=== PATIENT | female | born 1985 | race Caucasian/White ===

== ENCOUNTER 2016-11-10 10:21 | Emergency (ER) | payer OTHER ==
[~2016-11-10] VITALS: Wt 89.0 kg
[~2016-11-10 10:21] MED LIST: AMOX1TAB10 PO; BEN50 PO; CALC1TAB79 PO; CIPR500T4 PO; HC1C30 TOP; HYDR-3498 PO; HYDR-906 PO; HYDR200T5 PO; NAPR-260 PO; ONDA4TAB11 PO; PRED20TA PO; RANI150T9 PO; TRAM50TA2 PO
[2016-11-10] MEDS ORDERED: IBUPROFEN 800 MG TAB PO ONE (11:30)
[2016-11-10] MEDS ORDERED: IBUP-1542 PO (12:14)
--- NOTE | 2016-11-10 12:15 | ERD ---
ER Documentation Chief Complaint Date/Time DATE: 11/10/16 TIME: 12:15 Chief Complaint R ARM NUMBNESS AND FEELING TIRED AND LIGHTHEADED FOR 3 DAYS. HX OF LUPUS HPI Patient is a 31-year-old female with lupus who presents saying that she is "feeling weird". She's been feeling this for a few days. She feels like " needles or poking me under both feet". She said that last night she started with right arm tingling and heaviness. She had subjective fever but did not take her temperature. She used tramadol last night. She does have a primary doctor. Upon review of old medical records the patient has multiple visits to the ER for various complaints. ROS All systems reviewed and are negative except as per history of present illness. Medications Home Meds Active Scripts Ibuprofen* (Motrin*) 600 Mg Tab, 600 MG PO Q6H Y for PAIN AND OR ELEVATED TEMP, #30 TAB Prov:HOSEA DUENAS MD 11/10/16 Ondansetron (Zofran Odt) 4 Mg Tab.rapdis, 4 MG PO Q6, #10 Prov:MARIA TERESA TINAJERO DO 08/10/16 Hydrocodone/Acetaminophen ([place] 5-325 Tablet) 1 Each Tablet, 1 EACH PO Q6, #20 TAB Prov:GREENMARIA TERESA DO 08/10/16 Hydrocodone/Acetaminophen ([place] 5-325 Tablet) 1 Each Tablet, 1 EACH PO Q6, #14 TAB Prov:MARIA TERESA TINAJERO DO 07/24/16 Tramadol HCl (Tramadol HCl) 50 Mg Tablet, 50 MG PO Q4 Y for PAIN, #20 TAB Prov:HUMBERTO ROSA PA-C 06/07/16 Hydrocodone Bit-Acetaminophen* ([place]*) 5-325 Mg Tab, 1 TAB PO Q6 Y for PAIN, # 20 TAB Prov:EMMA GIL NP 12/03/15 Reported Medications Calcium Carbonate/Vitamin D3 ([place] 500+D Tablet) 1 Each Tablet, 1 TAB PO, TAB 07/24/16 Hydroxychloroquine Sulfate* (Plaquenil*) 200 Mg Tab, 200 MG PO DAILY, TAB 07/24/16 Discontinued Reported Medications Naproxen* (Naprosyn*) 500 Mg Tablet, 500 MG PO BID, TAB 07/24/16 Discontinued Scripts Naproxen* (Naprosyn*) 500 Mg Tablet, 500 MG PO BID Y for PAIN AND/OR INFLAMMATION, #30 TAB Prov:MARIA TERESA TINAJERO DO 08/10/16 Ciprofloxacin Hcl* (Ciprofloxacin Hcl*) 500 Mg Tablet, 500 MG PO BID for 7 Days , TAB Prov:MARIA TERESA TINAJERO DO 08/10/16 Ranitidine Hcl* (Zantac*) 150 Mg Tablet, 150 MG PO BID, #60 TAB Prov:CHRISTIANO TINAJEROMINERVA RAYA 07/24/16 Prednisone* (Prednisone*) 20 Mg Tab, 40 MG PO DAILY for 4 Days, TAB Prov:HUMBERTO ROSA PA-C 06/07/16 Prednisone* (Prednisone*) 20 Mg Tab, 40 MG PO DAILY for 4 Days, TAB Prov:JILLIAN CARTWRIGHT PA-C 05/05/16 Diphenhydramine Hcl* (Benadryl*) 50 Mg Cap, 50 MG PO Q6 Y for rash, #30 CAP Prov:JILLIAN CARTWRIGHT PA-C 05/05/16 Hydrocortisone* Topical (Hydrocortisone* Topical) 1%-28.35 Gm Cream..g., 1 APPLIC TOP Q6 Y for ITCHING, #1 TUB Prov:JILLIAN CARTWRIGHT PA-C 05/05/16 Amox Tr/Potassium Clavulanate (Amox Tr-K Clv 875-125 Mg Tab) 1 Tab Tablet, 1 TAB PO BID for 7 Days, #20 TAB Prov:RICKEY LIN MD 02/29/16 Allergies Allergies: Coded Allergies: No Known Drug Allergies (Verified Allergy, Mild, 11/10/16) PMhx/Soc History of Surgery: Yes (X3 C/S) Anesthesia Reaction: No Hx Neurological Disorder: No Hx Respiratory Disorders: No Hx Cardiac Disorders: Yes (SC) Hx Psychiatric Problems: No Hx Miscellaneous Medical Probl: Yes (LUPUS) Hx Alcohol Use: No Hx Substance Use: No Hx Tobacco Use: No Smoking Status: Never smoker FmHx Family History: No coronary disease, No diabetes Physical Exam Vitals Vital Signs Date Time Temp Pulse Resp B/P Pulse Ox O2 Delivery O2 Flow Rate FiO2 11/10/16 12:34 98.8 72 15 104/69 100 Room Air 11/10/16 10:34 98.8 83 22 114/67 100 Physical Exam Const: Acute distress Head: Atraumatic Eyes: Normal Conjunctiva ENT: Normal External Ears, Nose and Mouth. Neck: Full range of motion..~ No meningismus. Resp: Clear to auscultation bilaterally Cardio: Regular rate and rhythm, no murmurs Abd: Soft, non tender, non distended. Normal bowel sounds Skin: No petechiae or rashes Back: No midline or flank tenderness Ext: No cyanosis, or edema Neur: Awake and alert, cranial nerves II through XII are intact, strength is 5 out of 5 in all 4 extremities Psych: Normal Mood and Affect Results 24 hrs Laboratory Tests Test 11/10/16 11:12 Bedside Glucose 78mg/dL Current Medications Medications (Trade) Dose Ordered Sig/Tony Route PRN Reason Start Time Stop Time Status Last Admin Dose Admin Ibuprofen (Motrin) 800 mg ONCE ONCE PO 11/10/16 11:30 11/10/16 11:31 DC 11/10/16 11:48 Procedures/MDM EKG read by me: Rate/Rhythm: Regular rate and rhythm at a rate of 68 Intervals: Normal Impression: No evidence of ischemia or arrhythmia Accu-Chek is normal. Urine test is negative. Patient is a 31-year-old female with lupus who presents with paresthesias. Her symptoms are not consistent with acute coronary syndrome or stroke. She has a normal neurologic exam. EKG is normal. Accu-Chek is normal and I doubt hypo-or hyperglycemia. Her test is negative and I doubt or ectopic . I believe outpatient management is appropriate. The patient will need to follow-up closely with her primary doctor within 24-48 hours and to return sooner for any worsening symptoms. She understands the plan and is okay for discharge at this time. Departure Diagnosis: Primary Impression: Paresthesia Condition: Fair Patient Instructions: Paraesthesias Additional Instructions: Call your primary care doctor TOMORROW for an appointment during the next 1-2 days.See the doctor sooner or return here if your condition worsens before your appointment time. HOSEA DUENAS MD Nov 10, 2016 12:15
[2016-11-10 12:34] VITALS: BP 104/69; PULSE 72; RESP 15; TEMP 98.8
== END 2016-11-10 12:36 | disposition home or self-care (01) ==
LOC: E/R 10:21
DX: R20.2 Paresthesia of skin (principal); R42 Dizziness and giddiness
CPT/HCPCS: 82962; Z7610; 93005

== ENCOUNTER 2016-11-16 16:02 | Emergency (ER) | END 2016-11-16 20:47 | disposition home or self-care (01) | DX: M32.9 Systemic lupus erythematosus, unspecified (principal); R07.9 Chest pain, unspecified | CPT/HCPCS: 71010; 80053; 81001; 85025; 93005; 96374; J1885; Z7502 ==

== ENCOUNTER 2016-12-17 11:56 | Emergency (ER) | payer OTHER ==
[~2016-12-17] VITALS: Ht 157.5 cm; Wt 94.0 kg
[~2016-12-17 11:56] MED LIST changes: -AMOX1TAB10 PO; -BEN50 PO; -CIPR500T4 PO; -HC1C30 TOP; +IBUP-1542 PO; -NAPR-260 PO; -PRED20TA PO; -RANI150T9 PO
[2016-12-17 12:08] VITALS: Ht 157.5 cm; Wt 94.0 kg
--- NOTE | 2016-12-17 12:38 | ERD ---
ER Documentation Chief Complaint Date/Time DATE: 12/17/16 Chief Complaint Left cheek swelling s/p "pooped big pimple" yesterday HPI The patient is a 31-year-old female who presents to the Emergency Department with complaint of left cheek pain and swelling. The patient reports that over the past few days, she has developed a large cystic pimple to the left cheek. Yesterday, she tried to pop the pimple, which only resulted in further pain and swelling. Upon waking up this morning, she noted continued throbbing pain to the area, with warmth, tenderness, swelling and now, overlying erythema. She notes that the pain is worse with palpation. The patient rates her current pain as 7/10. She denies any spontaneous drainage. Denies difficulty opening/ closing her mouth. Denies fevers or chills. Denies nausea or vomiting. ROS All systems reviewed and are negative except as per history of present illness. Medications Home Meds Active Scripts Ibuprofen* (Motrin*) 600 Mg Tab, 600 MG PO Q6, #30 TAB Prov:AMY BROWN PA-C 12/17/16 Cephalexin* (Keflex*) 500 Mg Capsule, 500 MG PO QID for 7 Days, CAP Prov:AMY BROWN PA-C 12/17/16 Sulfamethoxazole-Trimethoprim* (Bactrim* DS) 800-160 Mg Tab, 1 TAB PO BID for 10 Days, TAB Prov:AMY BROWN PA-C 12/17/16 Hydrocodone/Acetaminophen ([place] 5-325 Tablet) 1 Each Tablet, 1 TAB PO Q6H Y for PAIN, #20 TAB Prov:SHANON BUCHANAN 11/16/16 Ibuprofen* (Motrin*) 600 Mg Tab, 600 MG PO Q6H Y for PAIN AND OR ELEVATED TEMP, #30 TAB Prov:HOSEA DUENAS MD 11/10/16 Ondansetron (Zofran Odt) 4 Mg Tab.rapdis, 4 MG PO Q6, #10 Prov:MARIA TERESA TINAJERO DO 08/10/16 Hydrocodone/Acetaminophen ([place] 5-325 Tablet) 1 Each Tablet, 1 EACH PO Q6, #20 TAB Prov:GREENRONNIEMARIA TERESA DO 08/10/16 Hydrocodone/Acetaminophen ([place] 5-325 Tablet) 1 Each Tablet, 1 EACH PO Q6, #14 TAB Prov:MARIA TERESA TINAJERO DO 07/24/16 Tramadol HCl (Tramadol HCl) 50 Mg Tablet, 50 MG PO Q4 Y for PAIN, #20 TAB Prov:HUMBERTO ROSA PA-C 06/07/16 Hydrocodone Bit-Acetaminophen* ([place]*) 5-325 Mg Tab, 1 TAB PO Q6 Y for PAIN, # 20 TAB Prov:EMMA GIL NP 12/03/15 Reported Medications Calcium Carbonate/Vitamin D3 ([place] 500+D Tablet) 1 Each Tablet, 1 TAB PO, TAB 07/24/16 Hydroxychloroquine Sulfate* (Plaquenil*) 200 Mg Tab, 200 MG PO DAILY, TAB 07/24/16 Allergies Allergies: Coded Allergies: No Known Drug Allergies (Verified Allergy, Mild, 12/17/16) PMhx/Soc History of Surgery: Yes (X3 C/S) Anesthesia Reaction: No Hx Neurological Disorder: No Hx Respiratory Disorders: No Hx Cardiac Disorders: Yes (acs) Hx Psychiatric Problems: No Hx Miscellaneous Medical Probl: Yes (LUPUS) Hx Alcohol Use: No Hx Substance Use: No Hx Tobacco Use: No Smoking Status: Never smoker Physical Exam Vitals Vital Signs Date Time Temp Pulse Resp B/P Pulse Ox O2 Delivery O2 Flow Rate FiO2 12/17/16 12:08 98.4 82 16 110/69 99 Physical Exam Const: Well-developed, well-nourished, in no acute distress. Head: Normocephalic. Atraumatic Eyes: Normal Conjunctiva ENT: Normal External Ears, Nose and Mouth. Clear oropharynx. No trismus. No stridor. No brawny induration. No submandibular swelling. No lip or tongue swelling. Neck: Supple. Full range of motion. No lymphadenopathy. Resp: Clear to auscultation bilaterally. Speaking in full sentences. No wheezing. Cardio: Regular rate and rhythm, no murmurs Skin: Red, indurated, cystic structure/abscess to left cheek, with no fluctuance appreciated. Few overlying abrasions, but no bleeding or spontaneous drainage. No crepitus. The area is warm, tender, erythematous with minimal swelling noted. Ext: No clubbing, cyanosis, or edema. Moving all extremities. Neur: Awake and alert Psych: Normal Mood and Affect Procedures/MDM This is a 31-year-old female presenting to the emergency department with complaint of warmth, erythema and swelling to the left cheek s/p attempt at popping a large pimple yesterday. The patient had a notable indurated erythematous region, that is warm to touch and tender to palpation on physical examination. However, the patient's oropharynx and airway was patent, and exhibited no breathing difficulties, wheezing, tongue swelling or lip swelling. Her vital signs were stable, and she was afebrile, with no recent history of fevers or chills. The differential diagnosis includes, but is not limited to, allergic reaction, insect bite, fungal infection, cellulitis, MRSA, impetigo, shingles, herpes simplex virus, burn, abscess, dermatitis, viral syndrome, candidiasis, medication reaction, Torres Yeison syndrome, epidermolysis bullosa, toxic epidermal necrolysis, meningococcemia. After rest, the patient has no new complaints, and the patient remains stable with appropriate vital signs and no signs of respiratory distress. Upon my review and interpretation of the patient's presentation and overall ER course, I believe the patient's symptoms are most consistent with abscess/ infected cyst of left cheek. Given induration and current presentation, in addition to location on patient's face, will attempt to first treat with antibiotics rather than I&D. The patient is in stable condition and therefore can be discharged home with prescriptions for Bactrim and Keflex, and strict return precautions for signs of deteriorating or worsening condition. Warm compresses recommended. The patient is strongly advised to follow up with her primary care provider within 2-3 days for re-evaluation and further management, or return to the ER sooner for worsening symptoms. Additionally, she is advised to return sooner if she notices the erythema or swelling spreading beyond the current borders. I shared my medical decision making and plan with the patient at length and in great detail, and she verbally understands and agrees with the plan for further observation and care as an outpatient. At the time of discharge all questions were answered. Departure Diagnosis: Primary Impression: Abscess of left internal cheek Condition: Stable Patient Instructions: Abscess, Antiobiotic Treatment Only Additional Instructions: Follow up with your primary medical provider in 2-3 days for reevaluation and further management. Return to the ED sooner for any new or worsening symptoms, including development of fevers (> 100.4), vomiting, worsening swelling, development of worsening redness, or any other concerning symptoms. AMY BROWN PA-C Dec 17, 2016 12:38
[2016-12-17] MEDS ORDERED: BACTDS PO (12:39)
[2016-12-17] MEDS ORDERED: CEPH-443 PO (12:39)
[2016-12-17] MEDS ORDERED: IBUP-1542 PO (12:40)
== END 2016-12-17 15:15 | disposition home or self-care (01) ==
LOC: FTE 11:56
DX: L02.01 Cutaneous abscess of face (principal)
CPT/HCPCS: 99284

== ENCOUNTER 2017-01-13 01:39 | Emergency (ER) | payer OTHER ==
[~2017-01-13] VITALS: Ht 162.6 cm; Wt 92.5 kg
[~2017-01-13 01:39] MED LIST changes: +BACTDS PO; +CEPH-443 PO
[2017-01-13 01:42] VITALS: Ht 162.6 cm; Wt 92.5 kg
[2017-01-13] MEDS ORDERED: ONDANSETRON (ODT) 4 MG TAB ODT STA (01:57)
[2017-01-13] MEDS ORDERED: HYDROCODONE/APAP (10/325) TAB PO ONE (02:00)
[2017-01-13] MEDS ORDERED: HYDR-906 PO (02:04)
--- NOTE | 2017-01-13 02:13 | ERD ---
ER Documentation Chief Complaint Date/Time DATE: 01/13/17 TIME: 02:09 Chief Complaint joint pains especially on wrist and ankle, hx-lupus HPI 31-year-old female presents in emergency department for complaints of joint pains unrelieved by pain medication given by her doctor. Patient has history of lupus. Patient has history of chronic joint pains, currently takes tramadol for pain with only mild relief. Patient is here today because pain is uncontrolled. Patient denies any trauma and affected area. Patient denies any fever or chills. Patient denies any redness or swelling on the joints. Patient is complaining of generalized joint pains, more on the reason the ankle, bilateral. Patient denies any deformity. Patient denies any numbness or tingling. ROS All systems reviewed and are negative except as per history of present illness. Medications Home Meds Active Scripts Hydrocodone/Acetaminophen ([place] 5-325 Tablet) 1 Each Tablet, 1 TAB PO Q6H Y for SEVERE PAIN LEVEL 7-10, #20 TAB Prov:EMMA GIL NP 01/13/17 Ibuprofen* (Motrin*) 600 Mg Tab, 600 MG PO Q6, #30 TAB Prov:AMY BROWN PA-C 12/17/16 Cephalexin* (Keflex*) 500 Mg Capsule, 500 MG PO QID for 7 Days, CAP Prov:AMY BROWN PA-C 12/17/16 Sulfamethoxazole-Trimethoprim* (Bactrim* DS) 800-160 Mg Tab, 1 TAB PO BID for 10 Days, TAB Prov:AMY BROWN PA-C 12/17/16 Hydrocodone/Acetaminophen ([place] 5-325 Tablet) 1 Each Tablet, 1 TAB PO Q6H Y for PAIN, #20 TAB Prov:SHANON BUCHANAN 11/16/16 Ibuprofen* (Motrin*) 600 Mg Tab, 600 MG PO Q6H Y for PAIN AND OR ELEVATED TEMP, #30 TAB Prov:HOSEA DUENAS MD 11/10/16 Ondansetron (Zofran Odt) 4 Mg Tab.rapdis, 4 MG PO Q6, #10 Prov:MARIA TERESA TINAJERO DO 08/10/16 Hydrocodone/Acetaminophen ([place] 5-325 Tablet) 1 Each Tablet, 1 EACH PO Q6, #20 TAB Prov:MARIA TERESA TINAJERO DO 08/10/16 Hydrocodone/Acetaminophen ([place] 5-325 Tablet) 1 Each Tablet, 1 EACH PO Q6, #14 TAB Prov:MARIA TERESA TINAJERO DO 07/24/16 Tramadol HCl (Tramadol HCl) 50 Mg Tablet, 50 MG PO Q4 Y for PAIN, #20 TAB Prov:HUMBERTO ROSA PA-C 06/07/16 Hydrocodone Bit-Acetaminophen* ([place]*) 5-325 Mg Tab, 1 TAB PO Q6 Y for PAIN, # 20 TAB Prov:EMMA GIL NP 12/03/15 Reported Medications Calcium Carbonate/Vitamin D3 ([place] 500+D Tablet) 1 Each Tablet, 1 TAB PO, TAB 07/24/16 Hydroxychloroquine Sulfate* (Plaquenil*) 200 Mg Tab, 200 MG PO DAILY, TAB 07/24/16 Allergies Allergies: Coded Allergies: No Known Drug Allergies (Verified Allergy, Mild, 12/17/16) PMhx/Soc History of Surgery: Yes (X3 C/S) Anesthesia Reaction: No Hx Neurological Disorder: No Hx Respiratory Disorders: No Hx Cardiac Disorders: Yes (acs) Hx Psychiatric Problems: No Hx Miscellaneous Medical Probl: Yes (LUPUS) Hx Alcohol Use: No Hx Substance Use: No Hx Tobacco Use: No FmHx Family History: No coronary disease, No diabetes, No other Physical Exam Vitals Vital Signs Date Time Temp Pulse Resp B/P Pulse Ox O2 Delivery O2 Flow Rate FiO2 01/13/17 01:42 98.7 91 20 145/66 100 Physical Exam GENERAL: The patient is well developed and appropriate for usual state of health, in no apparent distress. CHEST: Clear to auscultation bilaterally. There are no rales, wheezes or rhonchi. HEART: Regular rate and rhythm. No murmurs, clicks, rubs or gallops. No S3 or S4. ABDOMEN: Soft, nontender and nondistended. Good bowel sounds. No rebound or guarding. No gross peritonitis. No gross organomegaly or masses. No Wilkerson sign or McBurney point tenderness. BACK: No midline or flank tenderness. EXTREMITIES: Bilateral wrist joints normal, no erythema, no crepitus, no deformity. Bilateral all joints normal, no erythema no joint deformity. Equal pulses bilaterally. There is no peripheral clubbing, cyanosis or edema. No focal swelling or erythema. Full range of motion of other joints of the body. Grossly neurovascularly intact. NEURO: Alert and oriented. Cranial nerves 2-12 intact. Motor strength in all 4 extremities with 5/5 strength. Sensation grossly intact. Normal speech and gait. SKIN: There is no apparent rash or petechia. The skin is warm and dry. HEMATOLOGIC AND LYMPHATIC: There is no evidence of excessive bruising or lymphedema. No gross cervical, axillary, or inguinal lymphadenopathy. Results 24 hrs Current Medications Medications (Trade) Dose Ordered Sig/Tony Route PRN Reason Start Time Stop Time Status Last Admin Dose Admin Acetaminophen/ Hydrocodone Bitart ([place] (10/325)) 1 tab ONCE ONCE PO 01/13/17 02:00 01/13/17 02:01 DC Ondansetron HCl (Zofran Odt) 4 mg ONCE STAT ODT 01/13/17 01:57 01/13/17 01:58 DC Patient was given medication for pain here in emergency department, after treatment, patient verbalized feeling much better. Patient's pain is improved. Zofran was given to prevent vomiting. Procedures/MDM Medical decision making: Patient's symptoms most likely consistent with chronic pain, possible lupus flareup, no symptoms of any bacterial infection, septic joint, septic arthritis. Patient does not have any fever. Patient appears well and is hemodynamically stable. Radiology exam is not indicated at this time, did not have any trauma on affected areas. Patient was given for [place], is advised to follow-up with possibly pain management for management of pain, advised to follow with primary care doctor in 2-3 days for reevaluation. Patient is advised to return to emergency department for worsening symptoms. Departure Diagnosis: Primary Impression: Chronic pain Chronic pain type: other chronic pain Qualified Code: G89.29 - Other chronic pain Condition: Stable Patient Instructions: Pain Management EMMA GIL NP Jan 13, 2017 02:13
== END 2017-01-13 02:37 | disposition home or self-care (01) ==
LOC: FTE 01:39
DX: G89.29 Other chronic pain (principal)
CPT/HCPCS: Z7502; Z7610; 99283

== ENCOUNTER 2017-03-21 09:03 | Emergency (ER) | payer OTHER ==
[~2017-03-21] VITALS: Ht 160 cm; Wt 86.4 kg
[2017-03-21 09:04] VITALS: Ht 160 cm; Wt 86.4 kg
[2017-03-21] MEDS ORDERED: SOD CHLORIDE 0.9% 1,000 ML IV STA (09:41)
[2017-03-21] MEDS ORDERED: ONDANSETRON 4 MG INJ IV STA (09:41)
[2017-03-21] MEDS ORDERED: morphine 4 MG/ML VIAL IV STA (09:41)
[2017-03-21 10:01] LABS: ADD SCAN DIFF NO
[2017-03-21 10:05] LABS: BASOPHIL # 0.1 10^3/ul (0.0-0.1); BASOPHILS % 0.4 % (0.0-2.0); EOSINOPHILS # 0.1 10^3/ul (0.0-0.5); EOSINOPHILS % 0.6 % (0.0-7.0); HEMATOCRIT 39.9 % (37.0-47.0); HEMOGLOBIN 13.4 g/dl (12.0-16.0); LYMPHOCYTES # 2.4 10^3/ul (0.8-2.9); LYMPHOCYTES % 21.4 % (15.0-51.0); MEAN CORPUSCULAR HEMOGLOBIN 29.3 pg (29.0-33.0); MEAN CORPUSCULAR HGB CONC 33.6 g/dl (32.0-37.0); MEAN CORPUSCULAR VOLUME 87.1 fl (82.0-101.0); MEAN PLATELET VOLUME 10.9 fl (7.4-10.4); MONOCYTE # 0.7 10^3/ul (0.3-0.9); MONOCYTES % 6.1 % (0.0-11.0); NEUTROPHIL # 8.1 10^3/ul (1.6-7.5); NEUTROPHILS % 71.2 % (39.0-77.0); PLATELET COUNT 348 10^3/UL (140-415); RED BLOOD COUNT 4.58 10^6/ul (4.20-5.40); RED CELL DISTRIBUTION WIDTH 13.4 % (11.5-14.5); WHITE BLOOD COUNT 11.4 10^3/ul (4.8-10.8)
[2017-03-21 10:24] LABS: ADD UMIC YES; URINE BILIRUBIN (Dip) NEGATIVE (NEGATIVE); URINE BLOOD (Dip) 3+ (NEGATIVE); URINE COLOR YELLOW (YELLOW); URINE GLUCOSE (Dip) NEGATIVE (NEGATIVE); URINE KETONES (Dip) NEGATIVE (NEGATIVE); URINE LEUKOCYTE ESTERASE (Dip) NEGATIVE (NEGATIVE); URINE NITRITE (Dip) NEGATIVE (NEGATIVE); URINE TOTAL PROTEIN (Dip) TRACE (NEGATIVE); URINE UROBILINOGEN (Dip) 0.2 E.U./dL (0.1-1.0)
[2017-03-21 10:31] LABS: ALBUMIN 5.3 g/dl (3.3-4.9); ALBUMIN/GLOBULIN RATIO 1.7; BILIRUBIN,INDIRECT 0.4 mg/dl (0-1.1); BILIRUBIN,TOTAL 0.4 mg/dl (0.2-1.3); CREATININE 0.69 mg/dl (0.44-1.00); TOTAL PROTEIN 8.4 g/dl (6.1-8.1)
[2017-03-21 10:33] LABS: INR 1.03; PROTIME 13.5 Sec (12.2-14.2); PT RATIO 1.1
[2017-03-21 10:34] LABS: PARTIAL THROMBOPLASTIN TIME 29.6 Sec (25.0-35.0)
[2017-03-21 11:00] LABS: BACTERIA,URINE MANY; SQUAMOUS EPITHELIAL CELL,UR OCCASIONAL
[2017-03-21 11:01] LABS: MUCUS,URINE MODERATE
--- NOTE | 2017-03-21 12:53 | RADRPT ---
PROCEDURE: US Pelvis. CLINICAL INDICATION: vaginal bleeding TECHNIQUE: Multiple sonographic images of the pelvis were obtained utilizing a transabdominal and endovaginal technique. The images were reviewed on a PACS workstation. COMPARISON: 11/16/2016 FINDINGS: The uterus is normal in size and demonstrates a normal appearance of the myometrium. The endometria l stripe is homogeneous in appearance and has the thickness of 7 mm. No intrauterine gestation is noted. The ovaries are normal in size and echogenicity. Normal Doppler flow is identified in both ovaries. The right ovary measures 3.0 x 2.1 x 2.3 cm. The left ovary measures 2.3 x 1.5 x 1.5 cm. There is a moderate amount of free fluid in the pelvis. RPTAT: AA IMPRESSION: No intrauterine gestation visualized. Moderate amount of free fluid in the pelvis. Differential diagnosis includes early , missed or ectopic . Follow-up ultrasound and HCG levels is recommended. .Neo Cotton MD, MD Date Time Electronically viewed and signed by .Neo Cotton MD, on 03/21/2017 12:52 .S/
[2017-03-21] MEDS ORDERED: HYDR-906 PO (13:07)
--- NOTE | 2017-03-21 13:43 | ERD ---
ER Documentation Chief Complaint Date/Time DATE: 03/21/17 TIME: 13:39 Chief Complaint LOWER ABDOMINAL CRAMPING AND VAGINAL BLEEDING X 13 DAYS HPI This 31-year-old female presents with some lower abdominal cramping and bleeding for approximately the last 13 days. She is usually regular for 3-4 days. Patient has a history of lupus. Pain is 5 on the suprapubic area but is extends laterally as well but does not seem to be worse on the right or the left. She has low back pain as well. Patient is not sure if she is per ROS All systems reviewed and are negative except as per history of present illness. Medications Home Meds Active Scripts Hydrocodone/Acetaminophen ([place] 5-325 Tablet) 1 Each Tablet, 1 TAB PO Q6H Y for PAIN, #10 TAB Prov:KE MEZA MD 03/21/17 Hydrocodone/Acetaminophen ([place] 5-325 Tablet) 1 Each Tablet, 1 TAB PO Q6H Y for SEVERE PAIN LEVEL 7-10, #20 TAB Prov:EMMA GIL NP 01/13/17 Ibuprofen* (Motrin*) 600 Mg Tab, 600 MG PO Q6, #30 TAB Prov:AMY BROWN PA-C 12/17/16 Cephalexin* (Keflex*) 500 Mg Capsule, 500 MG PO QID for 7 Days, CAP Prov:AMY BROWN PA-C 12/17/16 Sulfamethoxazole-Trimethoprim* (Bactrim* DS) 800-160 Mg Tab, 1 TAB PO BID for 10 Days, TAB Prov:AMY BROWN PA-C 12/17/16 Hydrocodone/Acetaminophen ([place] 5-325 Tablet) 1 Each Tablet, 1 TAB PO Q6H Y for PAIN, #20 TAB Prov:SHANON BUCHANAN 11/16/16 Ibuprofen* (Motrin*) 600 Mg Tab, 600 MG PO Q6H Y for PAIN AND OR ELEVATED TEMP, #30 TAB Prov:HOSEA DUENAS MD 11/10/16 Ondansetron (Zofran Odt) 4 Mg Tab.rapdis, 4 MG PO Q6, #10 Prov:MARIA TERESA TINAJERO DO 08/10/16 Hydrocodone/Acetaminophen ([place] 5-325 Tablet) 1 Each Tablet, 1 EACH PO Q6, #20 TAB Prov:MARIA TERESA TINAJERO DO 08/10/16 Hydrocodone/Acetaminophen ([place] 5-325 Tablet) 1 Each Tablet, 1 EACH PO Q6, #14 TAB Prov:MARIA TERESA TINAJERO DO 07/24/16 Tramadol HCl (Tramadol HCl) 50 Mg Tablet, 50 MG PO Q4 Y for PAIN, #20 TAB Prov:HUMBERTO ROSA PA-C 06/07/16 Hydrocodone Bit-Acetaminophen* ([place]*) 5-325 Mg Tab, 1 TAB PO Q6 Y for PAIN, # 20 TAB Prov:EMMA GIL NP 12/03/15 Reported Medications Calcium Carbonate/Vitamin D3 ([place] 500+D Tablet) 1 Each Tablet, 1 TAB PO, TAB 07/24/16 Hydroxychloroquine Sulfate* (Plaquenil*) 200 Mg Tab, 200 MG PO DAILY, TAB 07/24/16 Allergies Allergies: Coded Allergies: No Known Drug Allergies (Verified Allergy, Mild, 12/17/16) PMhx/Soc History of Surgery: Yes (X3 C/S) Anesthesia Reaction: No Hx Neurological Disorder: No Hx Respiratory Disorders: No Hx Cardiac Disorders: Yes (acs) Hx Psychiatric Problems: No Hx Miscellaneous Medical Probl: Yes (LUPUS) Hx Alcohol Use: No Hx Substance Use: No Hx Tobacco Use: No Physical Exam Vitals Vital Signs Date Time Temp Pulse Resp B/P Pulse Ox O2 Delivery O2 Flow Rate FiO2 03/21/17 09:04 98.9 105 17 128/74 99 Physical Exam Const: [] Alert, uncomfortable due to pain per Head: Atraumatic Eyes: Normal Conjunctiva ENT: Normal External Ears, Nose and Mouth. Neck: Full range of motion..~ No meningismus. Resp: Clear to auscultation bilaterally Cardio: Regular rate and rhythm, no murmurs Abd: Soft, non tender, non distended. Normal bowel sounds Skin: No petechiae or rashes Back: No midline or flank tenderness. Mild suprapubic tenderness and paraspinous lumbar tenderness without bony tenderness or deformities. Ext: No cyanosis, or edema Neur: Awake and alert Psych: Normal Mood and Affect Result Diagram: 03/21/17 0950 03/21/17 0950 Results 24 hrs Laboratory Tests Test 03/21/17 09:37 03/21/17 09:50 Urine Color YELLOW Urine Clarity CLEAR Urine pH 6.0 Urine Specific [place] 1.025 Urine Ketones NEGATIVE Urine Nitrite NEGATIVE Urine Bilirubin NEGATIVE Urine Urobilinogen 0.2 E.U./dL Urine Leukocyte Esterase NEGATIVE Urine Microscopic RBC 2-5/HPF Urine Microscopic WBC 0-2/HPF Urine Squamous Epithelial Cells OCCASIONAL Urine Bacteria MANY Urine Mucus MODERATE Urine Hemoglobin 3+ Urine Glucose NEGATIVE% Urine Total Protein TRACE White Blood Count 11.410^3/ul Red Blood Count 4.5810^6/ul Hemoglobin 13.4g/dl Hematocrit 39.9% Mean Corpuscular Volume 87.1fl Mean Corpuscular Hemoglobin 29.3pg Mean Corpuscular Hemoglobin Concent 33.6g/dl Red Cell Distribution Width 13.4% Platelet Count 10407^3/UL Mean Platelet Volume 10.9fl Neutrophils % 71.2% Lymphocytes % 21.4% Monocytes % 6.1% Eosinophils % 0.6% Basophils % 0.4% Nucleated Red Blood Cells % 0.0/100WBC Neutrophils # 8.110^3/ul Lymphocytes # 2.410^3/ul Monocytes # 0.710^3/ul Eosinophils # 0.110^3/ul Basophils # 0.110^3/ul Nucleated Red Blood Cells # 0.010^3/ul Prothrombin Time 13.5Sec Prothrombin Time Ratio 1.1 INR International Normalized Ratio 1.03 Activated Partial Thromboplast Time 29.6Sec Sodium Level 143mmol/L Potassium Level 4.0mmol/L Chloride Level 105mmol/L Carbon Dioxide Level 26mmol/L Anion Gap 16 Blood Urea Nitrogen 8mg/dl Creatinine 0.69mg/dl Glucose Level 100mg/dl Calcium Level 10.0mg/dl Total Bilirubin 0.4mg/dl Direct Bilirubin 0.00mg/dl Indirect Bilirubin 0.4mg/dl Aspartate Amino Transf (AST/SGOT) 20IU/L Alanine Aminotransferase (ALT/SGPT) 33IU/L Alkaline Phosphatase 71IU/L Total Protein 8.4g/dl Albumin 5.3g/dl Globulin 3.10g/dl Albumin/Globulin Ratio 1.70 Beta HCG, Quantitative 383.4mIU/ml Current Medications Medications (Trade) Dose Ordered Sig/Tony Route PRN Reason Start Time Stop Time Status Last Admin Dose Admin Sodium Chloride (NS) 1,000 ml @ 1,000 mls/hr Q1H STAT IV 03/21/17 09:41 03/21/17 10:40 DC 03/21/17 09:51 Morphine Sulfate (morphine) 4 mg ONCE STAT IV 03/21/17 09:41 03/21/17 09:44 DC 03/21/17 09:51 Ondansetron HCl (Zofran Inj) 4 mg ONCE STAT IV 03/21/17 09:41 03/21/17 09:44 DC 03/21/17 09:51 Procedures/MDM White blood cell count is 11.4 hemoglobin normal. HCG is incidentally positive. CMP is normal. Quantitative hCG is 383. Patient is Rh+. Urine positive for hemoglobin but no leukocytes, nitrites or glucose. Pelvic ultrasound shows no intrauterine gestation visualized. Moderate amount of free fluid in the pelvis. Differential includes early , missed or ectopic . No adnexal masses appreciated. Pelvic examination with information management specialist shows no products in the vaginal vault no exquisite tenderness in the adnexa. There is mild generalized tenderness in the fundus and pelvis. There is no purulent discharge. Patient presents with vaginal bleeding for 13 days with incidental . Patient does not remember any clots or tissue. Patient will be discharged home with instructions on the importance of a 2 day follow-up. Would expect hCG to be higher for normal or adnexal but patient will require 2 days to evaluate for ectopic . Signs and symptoms do not suggest endometritis or septic . Patient return sooner for fevers, vomiting, shortness of breath or chest pain. Patient was in significant amount of pain early in the ED visit was given morphine 4 mg IV and Zofran 4 mg IV. Signs and symptoms do not suggest appendicitis, acute abdomen but patient should recheck as directed. Departure Diagnosis: Primary Impression: Vaginal bleeding Condition: Stable Patient Instructions: Vaginal Bleed in Referrals: [facility] [employer] IT SPECIALIST [place] [id number] [facility] [address] [place] [address] [phone] OFFICE FAX TARUN RODRIGUEZ [address] [place], [place] [phone] [facility] [address] [place], [place] [id number] [facility] [address], [place] [address] DR CORNEJO, [facility] [address] [facility], [place] [address] [facility] [address] [place] [address] [facility] [address] [address] HUGHES, ANTONIO [address], [place] [address] [place] [address] [facility]. [address], [place] [address] DR ROSARIO, [facility] [address] [place] [address] Additional Instructions: Recommend repeat hormone level and 48 hours here or with OB. Suspect miscarriage but still need to evaluate for ectopic . Return sooner for fevers, new symptoms. KE MEZA MD Mar 21, 2017 13:42
== END 2017-03-21 13:58 | disposition home or self-care (01) ==
LOC: FTE 09:03
DX: N93.8 Other specified abnormal uterine and vaginal bleeding (principal); Z33.1 Pregnant state, incidental
CPT/HCPCS: 76801; 76817; 80053; 81001; 84702; 85025; 85610; 85730; 86900; 86901; J2270; J2405; J7030; 36415; 96361; 96374; 96375

== ENCOUNTER 2017-03-23 08:11 | Inpatient (IN) | payer OTHER ==
[2017-03-23] VITALS (18 sets, daily range): BP systolic 94–131; BP diastolic 49–85; PULSE 74–100; RESP 11–18; TEMP 98.9; Ht 160 cm; Wt 89.0 kg
[~2017-03-23] VITALS: Ht 160 cm; Wt 89.0 kg
[2017-03-23] MEDS ORDERED: ACETAMINOPHEN 325 MG TAB PO STA (08:32)
[2017-03-23 08:54] LABS: ADD SCAN DIFF NO
[2017-03-23 08:58] LABS: BASOPHILS % 0.4 % (0.0-2.0); EOSINOPHILS # 0.3 10^3/ul (0.0-0.5); EOSINOPHILS % 2.8 % (0.0-7.0); HEMATOCRIT 39.6 % (37.0-47.0); MEAN CORPUSCULAR HGB CONC 32.8 g/dl (32.0-37.0); MEAN CORPUSCULAR VOLUME 88.4 fl (82.0-101.0); MONOCYTE # 0.7 10^3/ul (0.3-0.9); MONOCYTES % 7.2 % (0.0-11.0); NEUTROPHIL # 6.2 10^3/ul (1.6-7.5); NEUTROPHILS % 67.3 % (39.0-77.0); PLATELET COUNT 308 10^3/UL (140-415); RED BLOOD COUNT 4.48 10^6/ul (4.20-5.40); RED CELL DISTRIBUTION WIDTH 13.2 % (11.5-14.5); WHITE BLOOD COUNT 9.3 10^3/ul (4.8-10.8)
[2017-03-23 09:02] LABS: ADD UMIC YES; URINE BILIRUBIN (Dip) NEGATIVE (NEGATIVE); URINE BLOOD (Dip) 3+ (NEGATIVE); URINE COLOR LT. YELLOW (YELLOW); URINE GLUCOSE (Dip) NEGATIVE (NEGATIVE); URINE KETONES (Dip) NEGATIVE (NEGATIVE); URINE LEUKOCYTE ESTERASE (Dip) NEGATIVE (NEGATIVE); URINE NITRITE (Dip) NEGATIVE (NEGATIVE); URINE TOTAL PROTEIN (Dip) NEGATIVE (NEGATIVE); URINE UROBILINOGEN (Dip) 0.2 E.U./dL (0.1-1.0)
[2017-03-23 09:18] LABS: BACTERIA,URINE MANY
--- NOTE | 2017-03-23 09:21 | RADRPT ---
PROCEDURE: US Pelvis. CLINICAL INDICATION: vaginal bleeding TECHNIQUE: Multiple sonographic images of the pelvis were obtained utilizing a transabdominal and endovaginal technique. The images were reviewed on a PACS workstation. COMPARISON: 03/21/2017 FINDINGS: The uterus is normal in size and demonstrates a normal appearance of the myometrium. The endometria l stripe is heterogeneous in appearance and has the thickness of 8 mm. No intrauterine gestation is noted. The ovaries are normal in size and echogenicity. Normal Doppler flow is identified in both ovaries. The right ovary measures 3.2 x 2.0 x 2.4 cm. There is a 2.7 x 1.7 x 1.6 cm echogenic mass in the right adnexa. The left ovary measures 2.8 x 1.5 x 1.7 cm. There is a small amount of complex fluid in the pelvis. RPTAT: AA IMPRESSION: No intrauterine gestation visualized. 2.7 cm echogenic mass in the right adnexa, suspicious for an ectopic . Close follow-up ultrasound and HCG levels is recommended. A call report was made and the findings discussed with Dr. Valadez at 03/23/2017 9:18:36 AM. .Neo Cotton MD, MD Date Time Electronically viewed and signed by .Neo Cotton MD, on 03/23/2017 09:21 .S/
--- NOTE | 2017-03-23 10:22 | ERD ---
ER Documentation Chief Complaint Date/Time DATE: 03/23/17 TIME: 10:16 Chief Complaint for repeat bhcg, here last tuesday, still bleeding HPI This patient is a 31-year-old female presenting to the emergency department for vaginal bleeding ongoing intermittently for the past 2 weeks. The patient's LMP was on 02/10/2017. She then began bleeding on 03/09/2017 and this has been ongoing intermittently since then. The patient was seen here 2 days ago and an ultrasound showed no intrauterine gestation in her beta hCG was in the upper 300s. 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 The patient is now having severe right suprapubic tenderness and continues to have vaginal bleeding daily. She denies dizziness, chest pain, fevers, chills, or other symptoms. ROS All systems reviewed and are negative except as per history of present illness. Medications Home Meds Active Scripts Hydrocodone/Acetaminophen ([place] 5-325 Tablet) 1 Each Tablet, 1 TAB PO Q6H Y for PAIN, #10 TAB Prov:KE VALADEZ MD 03/21/17 Hydrocodone/Acetaminophen ([place] 5-325 Tablet) 1 Each Tablet, 1 TAB PO Q6H Y for SEVERE PAIN LEVEL 7-10, #20 TAB Prov:EMMA GIL NP 01/13/17 Ibuprofen* (Motrin*) 600 Mg Tab, 600 MG PO Q6, #30 TAB Prov:AMY BROWN PA-C 12/17/16 Cephalexin* (Keflex*) 500 Mg Capsule, 500 MG PO QID for 7 Days, CAP Prov:AMY BROWN PA-C 12/17/16 Sulfamethoxazole-Trimethoprim* (Bactrim* DS) 800-160 Mg Tab, 1 TAB PO BID for 10 Days, TAB Prov:AMY BROWN PA-C 12/17/16 Hydrocodone/Acetaminophen ([place] 5-325 Tablet) 1 Each Tablet, 1 TAB PO Q6H Y for PAIN, #20 TAB Prov:SHANON BUCHANAN 11/16/16 Ibuprofen* (Motrin*) 600 Mg Tab, 600 MG PO Q6H Y for PAIN AND OR ELEVATED TEMP, #30 TAB Prov:HOSEA DUENAS MD 11/10/16 Ondansetron (Zofran Odt) 4 Mg Tab.rapdis, 4 MG PO Q6, #10 Prov:MARIA TERESA TINAJERO DO 08/10/16 Hydrocodone/Acetaminophen ([place] 5-325 Tablet) 1 Each Tablet, 1 EACH PO Q6, #20 TAB Prov:MARIA TERESA TINAJERO DO 08/10/16 Hydrocodone/Acetaminophen ([place] 5-325 Tablet) 1 Each Tablet, 1 EACH PO Q6, #14 TAB Prov:MARIA TERESA TINAJERO DO 07/24/16 Tramadol HCl (Tramadol HCl) 50 Mg Tablet, 50 MG PO Q4 Y for PAIN, #20 TAB Prov:HUMBERTO ROSA PA-C 06/07/16 Hydrocodone Bit-Acetaminophen* ([place]*) 5-325 Mg Tab, 1 TAB PO Q6 Y for PAIN, # 20 TAB Prov:EMMA GIL NP 12/03/15 Reported Medications Calcium Carbonate/Vitamin D3 ([place] 500+D Tablet) 1 Each Tablet, 1 TAB PO, TAB 07/24/16 Hydroxychloroquine Sulfate* (Plaquenil*) 200 Mg Tab, 200 MG PO DAILY, TAB 07/24/16 Allergies Allergies: Coded Allergies: No Known Drug Allergies (Verified Allergy, Mild, 12/17/16) PMhx/Soc History of Surgery: Yes (X3 C/S) Anesthesia Reaction: No Hx Neurological Disorder: No Hx Respiratory Disorders: No Hx Cardiac Disorders: Yes (acs) Hx Psychiatric Problems: No Hx Miscellaneous Medical Probl: Yes (LUPUS) Hx Alcohol Use: No Hx Substance Use: No Hx Tobacco Use: No FmHx Noncontributory for chief complaint Physical Exam Vitals Vital Signs Date Time Temp Pulse Resp B/P Pulse Ox O2 Delivery O2 Flow Rate FiO2 03/23/17 15:48 98.9 76 20 112/73 99 Room Air 03/23/17 08:12 98.1 89 18 125/83 99 Physical Exam Const: Well-appearing, nontoxic female resting in no acute distress. Head: Atraumatic Eyes: Normal Conjunctiva ENT: Normal External Ears, Nose and Mouth. Neck: Full range of motion..~ No meningismus. Resp: Clear to auscultation bilaterally Cardio: Regular rate and rhythm, no murmurs Abd: Soft, non tender, non distended. Normal bowel sounds : Bilateral suprapubic tenderness to palpation, right side more than the left. There is no CVA tenderness. Skin: No petechiae or rashes Back: No midline or flank tenderness Ext: No cyanosis, or edema Neur: Awake and alert Psych: Normal Mood and Affect Result Diagram: 03/23/17 1530 03/23/17 0843 Results 24 hrs Laboratory Tests Test 03/23/17 08:43 03/23/17 15:30 White Blood Count 9.310^3/ul 9.810^3/ul Red Blood Count 4.4810^6/ul 4.3110^6/ul Hemoglobin 13.0g/dl 12.6g/dl Hematocrit 39.6% 37.9% Mean Corpuscular Volume 88.4fl 87.9fl Mean Corpuscular Hemoglobin 29.0pg 29.2pg Mean Corpuscular Hemoglobin Concent 32.8g/dl 33.2g/dl Red Cell Distribution Width 13.2% 13.3% Platelet Count 60290^3/UL 60335^3/UL Mean Platelet Volume 11.0fl 10.8fl Neutrophils % 67.3% 69.3% Lymphocytes % 22.0% 21.8% Monocytes % 7.2% 5.7% Eosinophils % 2.8% 2.5% Basophils % 0.4% 0.4% Nucleated Red Blood Cells % 0.0/100WBC 0.0/100WBC Neutrophils # 6.210^3/ul 6.810^3/ul Lymphocytes # 2.010^3/ul 2.110^3/ul Monocytes # 0.710^3/ul 0.610^3/ul Eosinophils # 0.310^3/ul 0.210^3/ul Basophils # 0.010^3/ul 0.010^3/ul Nucleated Red Blood Cells # 0.010^3/ul 0.010^3/ul Urine Color LT. YELLOW Urine Clarity CLEAR Urine pH 5.5 Urine Specific [place] 1.025 Urine Ketones NEGATIVE Urine Nitrite NEGATIVE Urine Bilirubin NEGATIVE Urine Urobilinogen 0.2 E.U./dL Urine Leukocyte Esterase NEGATIVE Urine Microscopic RBC 10-25/HPF Urine Microscopic WBC 5-10/HPF Urine Epithelial Cells MODERATE Urine Bacteria MANY Urine Hemoglobin 3+ Urine Glucose NEGATIVE% Urine Total Protein NEGATIVE Sodium Level 140mmol/L Potassium Level 4.4mmol/L Chloride Level 103mmol/L Carbon Dioxide Level 26mmol/L Anion Gap 15 Blood Urea Nitrogen 10mg/dl Creatinine 0.68mg/dl Glucose Level 89mg/dl Calcium Level 9.7mg/dl Total Bilirubin 0.1mg/dl Direct Bilirubin 0.00mg/dl Indirect Bilirubin 0.1mg/dl Aspartate Amino Transf (AST/SGOT) 15IU/L Alanine Aminotransferase (ALT/SGPT) 38IU/L Alkaline Phosphatase 60IU/L Total Protein 7.3g/dl Albumin 4.9g/dl Globulin 2.40g/dl Albumin/Globulin Ratio 2.04 Beta HCG, Quantitative 118.7mIU/ml Current Medications Medications (Trade) Dose Ordered Sig/Tony Route PRN Reason Start Time Stop Time Status Last Admin Dose Admin Acetaminophen 650 mg 650 mg ONCE STAT PO 03/23/17 08:32 03/23/17 08:33 DC 03/23/17 08:35 Sodium Chloride (NS) 1,000 ml @ 1,000 mls/hr Q1H ONCE IV 03/23/17 11:30 03/23/17 12:29 DC 03/23/17 11:28 Ondansetron HCl (Zofran Inj) 4 mg BRIDGE ORDER PRN IV NAUSEA AND/OR VOMITING 03/23/17 14:30 03/24/17 14:29 Acetaminophen 650 mg 650 mg ER BRIDGE PRN PO MILD PAIN/FEVER 03/23/17 14:30 03/24/17 14:29 Lactated Ringer's 1,000 ml @ 125 mls/hr Q8H IV 03/23/17 14:45 03/23/17 15:36 Cefazolin Sodium/ Dextrose 50 ml @ 100 mls/hr ONCE IV 03/23/17 15:00 03/23/17 15:24 DC Oxytocin/Lactated Ringer's 500 ml @ 0 mls/hr ONCE PRN IV For Hemorrhage Management 03/23/17 15:00 03/23/17 15:00 DC Methylergonovine Maleate (Methergine) 0.2 mg ONCE PRN IM VAGINAL BLEEDING 03/23/17 15:00 03/23/17 15:00 DC Carboprost Tromethamine (Hemabate) 250 mcg ONCE PRN IM VAGINAL BLEEDING 03/23/17 15:00 03/23/17 15:00 DC Misoprostol 1000 mcg 1,000 mcg ONCE PRN ND VAGINAL BLEEDING 03/23/17 15:00 03/23/17 15:00 DC Cefazolin Sodium/ Dextrose (Ancef 2 Gm/50 ml (Pmx)) 50 ml @ 100 mls/hr ONCE IVPB 03/23/17 15:00 03/23/17 15:24 DC [place] [address] Radiology Main Line: [phone] DIAGNOSTIC IMAGING REPORT Patient: DEMETRIUS BEARD : 1985 Age: 31 Sex: F MR #: [id number] DOS: 03/23/17 0832 Ordering MD: EVELYNE SPAIN PA-C Location: [facility] Room/Bed: PROCEDURE: US Pelvis. CLINICAL INDICATION: vaginal bleeding TECHNIQUE: Multiple sonographic images of the pelvis were obtained utilizing a transabdominal and endovaginal technique. The images were reviewed on a PACS workstation. COMPARISON: 03/21/2017 FINDINGS: The uterus is normal in size and demonstrates a normal appearance of the myometrium. The endometrial stripe is heterogeneous in appearance and has the thickness of 8 mm. No intrauterine gestation is noted. The ovaries are normal in size and echogenicity. Normal Doppler flow is identified in both ovaries. The right ovary measures 3.2 x 2.0 x 2.4 cm. There is a 2.7 x 1.7 x 1.6 cm echogenic mass in the right adnexa. The left ovary measures 2.8 x 1.5 x 1.7 cm. There is a small amount of complex fluid in the pelvis. RPTAT: AA IMPRESSION: No intrauterine gestation visualized. 2.7 cm echogenic mass in the right adnexa, suspicious for an ectopic . Close follow-up ultrasound and HCG levels is recommended. A call report was made and the findings discussed with Dr. Valadez at 03/23/2017 9: 18:36 AM. .Neo Cotton MD, MD Date Time Electronically viewed and signed by .Neo Cotton MD, on 03/23/2017 09: 21 .S/ CC: EVELYNE SPAIN PA-C [facility] White blood cell count is 9.3, hemoglobin 13.0. Quantitative hCG is 118 which is decreased from 48 hours ago. Patient is Rh positive. Urinalysis showed no leukocytes, nitrites or glucose. Pelvic ultrasound shows a 2.7 cm echogenic mass in the right adnexa, suspicious for an ectopic . Radiology was interpreted by the radiologist. Differential includes early , missed or ectopic . Patient presents with vaginal bleeding. On physical examination the patient does have tenderness to palpation of the right suprapubic area. After receiving the results of the ultrasound showing an echogenic mass, I consulted the on-call labor arrest, Dr. Parish, who visited the patient bedside. The patient was admitted for surgical intervention of the ectopic . The patient remained stable throughout her ED course, and then she was turned over to the OR team for further interventions and appropriate care. Departure Diagnosis: Primary Impression: Ectopic Condition: Fair EVELYNE SPAIN PA-C Mar 23, 2017 10:22
[2017-03-23] MEDS ORDERED: SOD CHLORIDE 0.9% 1,000 ML IV ONE (11:30)
[2017-03-23 11:32] LABS: ALBUMIN 4.9 g/dl (3.3-4.9); ALBUMIN/GLOBULIN RATIO 2.04; BILIRUBIN,INDIRECT 0.1 mg/dl (0-1.1); BILIRUBIN,TOTAL 0.1 mg/dl (0.2-1.3); CALCIUM 9.7 mg/dl (8.4-10.2); CREATININE 0.68 mg/dl (0.44-1.00); POTASSIUM 4.4 mmol/L (3.5-5.1); TOTAL PROTEIN 7.3 g/dl (6.1-8.1)
[2017-03-23] MEDS ORDERED: ACETAMINOPHEN 325 MG TAB PO PRN (14:30)
[2017-03-23] MEDS ORDERED: ONDANSETRON 4 MG INJ IV PRN ×3 (14:30→23:30)
[2017-03-23] MEDS ORDERED: CEFAZOLIN 2 GM/50 ML (PMX) 50 ML IVPB SCH (15:00)
[2017-03-23] MEDS ORDERED: OXYTOCIN 30 UNITS/LR 500 ML IV PRN (15:00)
[2017-03-23] MEDS ORDERED: METHYLERGONOVINE 0.2 MG INJ IM PRN (15:00)
[2017-03-23] MEDS ORDERED: CARBOPROST 250 MCG INJ IM PRN (15:00)
[2017-03-23] MEDS ORDERED: CEFAZOLIN 2 GM/50 ML (PMX) 50 ML IV SCH (15:00)
[2017-03-23] MEDS ORDERED: MISOPROSTOL 200 MCG TAB PR PRN (15:00)
--- NOTE | 2017-03-23 15:11 | HP ---
Date/Time of Note Date/Time of Note DATE: 03/23/17 TIME: 14:57 Assessment/Plan VTE Prophylaxis VTE Prophylaxis Intervention: ambulation Lines/Catheters [facility] Saline Lock Assessment/Plan Chief Complaint/Hosp Course Right lower abdominal pain Bleeding in early , drop in serum hCG in 48 hours. Right adnexal complex mass Above finding concerning for possible ectopic versus missed intrauterine early I have discussed with the patient about all the options for treatment including medical managemen using methotrexatet, and a close follow-up and monitoring of serum hCG versus surgical management with D&C with frozen evaluation of intrauterine contents and then diagnostic laparoscopy if no villi find in D&C, possible removal of ectopic with salpingectomy possible salpingectomy possible lysis of adhesion. Risk and benefit of each discussed in detail with the patient. Patient currently does not have any inspector set up and lay out. She is concerned that she might not be able to have adequate follow-up and desires to proceed with surgical management. Risk of procedure including risk of infection, bleeding, damage to surrounding structures including bowel and bladder and risk of conversion to open procedure , risk of salpingectomy that might affect her future fertility, risk of losing ovary or tube that might again affect her future fertility discussed with the patient in detail . Informed consent was obtained. Patient verbalized understanding all above risks. Discussed the procedure will be started as D&C. The uterine content will be sent to pathology for frozen evaluation. If there are any evidence of villi, will decide to continue follow-up with serial hCG check with or without methotrexate. If no evidence of villi found in the pathology evaluation of uterine contents, will proceed with diagnostic laparoscopy. She may need laparoscopic salpingostomy versus salpingectomy. The risk of conversion to open procedure due to prior surgeries and scar and adhesion discussed with the patient patient accept blood transfusion in case if necessary. Risk of blood transfusion including risk of HIV, hepatitis B and C and transfusion reactions Discussed with the patient as well in detail Patient verbalized understanding all above. All questions were answered to the patient's best satisfaction. We will proceed with above plan Keep the patient n.p.o. IV fluid D5 LR at 125 cc/h Consented for D&C, possible diagnostic laparoscopy, possible lysis of adhesion, possible salpingectomy or salpingostomy, possible removal of ovarian cyst, possible conversion to open laparotomy possible blood transfusion Problems: HPI/ROS Admit Date/Time Admit Date/Time Hx of Present Illness 31-year-old with amenorrhea for 5 weeks and 6 days based on last menstrual period (February 10, 2017) with bleeding in early for the past week on and off, and positive serum test and lower abdominal pain presented for follow-up HCG serum after 48 hours. LMP: February 10, 2017. Serum hCG 2 days ago 383 and today 118. Shows a drop of 69%. Had a pelvic ultrasound 2 days ago that was essentially nondiagnostic with no evidence of IUP or adnexal mass. Ultrasound today showed evidence of 2.7 cm right adnexal complex mass concerning for possible ectopic with no evidence of IUP. Patient also with right lower abdominal pain 6-7 out of 10., Feels bloated also complaining of dizziness and nausea. She could not eat since last night. Patient does not have any inspector set up and lay out. 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 Current was desired. Patient denies any other abdominal surgery besides . Denies any prior history of STD ROS Subjective hx not possible: other (Verbal and historian) Eyes: no complaints ENT: no complaints Respiratory: no complaints Cardiovascular: no complaints Gastrointestinal: other (Right lower abdominal tenderness, with moderate rebound tenderness. Abdomen is soft, no guarding, no rigidity, no tenderness in the left lower abdomen or any other part of the abdomen), pain Genitourinary: bleeding, other (Right lower abdominal pain as well as right adnexal tenderness) Musculoskeletal: no complaints Skin: no complaints Neurologic: no complaints Lymphatic: no complaints Psychological: no complaints Immunologic: no complaints PMH/Family/Social Past Medical History History of lupus, currently on medication. In remission Past Surgical History History of 3 Family History Significant Family History: no pertinent family hx Social History Non-smoker Alcohol Use: occasionally Drug Use: none Exam/Review of Systems Vital Signs Vitals Vital Signs Date Time Temp Pulse Resp B/P Pulse Ox O2 Delivery O2 Flow Rate FiO2 03/23/17 08:12 98.1 89 18 125/83 99 Exam Constitutional: alert, oriented, other (In moderate distress due to right lower abdominal pain), well developed Psych: nl mood/affect, no complaints Head: atraumatic, normocephalic Eyes: EOMI, nl conjunctiva ENMT: nl external ears & nose, nl lips & teeth, nl nasal mucosa & septum Neck: supple Respiratory: clear to auscultation, normal air movement Cardiovascular: nl pulses, regular rate and rhythm Gastrointestinal: other, soft, tender (Tenderness in the right lower abdomen as well as moderate rebound tenderness. No guarding, no rigidity. Abdomen is soft. Normal bowel sounds) Musculoskeletal: nl extremities to inspection Extremities: normal pulses Neurological: INDUSTRIAL PROPERTY APPRAISER II-XII intact, nl mental status, nl speech Skin: nl turgor Labs Result Diagram: 03/23/1784203/23/17842 Procedures Procedures PROCEDURE: US Pelvis. CLINICAL INDICATION: vaginal bleeding TECHNIQUE: Multiple sonographic images of the pelvis were obtained utilizing a transabdominal and endovaginal technique. The images were reviewed on a PACS workstation. COMPARISON: 03/21/2017 FINDINGS: The uterus is normal in size and demonstrates a normal appearance of the myometrium. The endometrial stripe is heterogeneous in appearance and has the thickness of 8 mm. No intrauterine gestation is noted. The ovaries are normal in size and echogenicity. Normal Doppler flow is identified in both ovaries. The right ovary measures 3.2 x 2.0 x 2.4 cm. There is a 2.7 x 1.7 x 1.6 cm echogenic mass in the right adnexa. The left ovary measures 2.8 x 1.5 x 1.7 cm. There is a small amount of complex fluid in the pelvis. RPTAT: AA IMPRESSION: No intrauterine gestation visualized. 2.7 cm echogenic mass in the right adnexa, suspicious for an ectopic . Close follow-up ultrasound and HCG levels is recommended. A call report was made and the findings discussed with Dr. Valadez at 03/23/2017 9: 18:36 AM. RODRIGO HIDALGO MD Mar 23, 2017 15:11
[2017-03-23] MEDS: LACTATED RINGER'S 1,000 ML IV SCH ×2 (15:36→22:45)
[2017-03-23 15:40] LABS: ADD SCAN DIFF NO
[2017-03-23 15:47] LABS: BASOPHILS % 0.4 % (0.0-2.0); EOSINOPHILS # 0.2 10^3/ul (0.0-0.5); EOSINOPHILS % 2.5 % (0.0-7.0); HEMATOCRIT 37.9 % (37.0-47.0); HEMOGLOBIN 12.6 g/dl (12.0-16.0); LYMPHOCYTES # 2.1 10^3/ul (0.8-2.9); LYMPHOCYTES % 21.8 % (15.0-51.0); MEAN CORPUSCULAR HEMOGLOBIN 29.2 pg (29.0-33.0); MEAN CORPUSCULAR HGB CONC 33.2 g/dl (32.0-37.0); MEAN CORPUSCULAR VOLUME 87.9 fl (82.0-101.0); MEAN PLATELET VOLUME 10.8 fl (7.4-10.4); MONOCYTE # 0.6 10^3/ul (0.3-0.9); MONOCYTES % 5.7 % (0.0-11.0); NEUTROPHIL # 6.8 10^3/ul (1.6-7.5); NEUTROPHILS % 69.3 % (39.0-77.0); PLATELET COUNT 289 10^3/UL (140-415); RED BLOOD COUNT 4.31 10^6/ul (4.20-5.40); RED CELL DISTRIBUTION WIDTH 13.3 % (11.5-14.5); WHITE BLOOD COUNT 9.8 10^3/ul (4.8-10.8)
[2017-03-23 15:58] LABS: INR 1.03; PROTIME 13.5 Sec (12.2-14.2); PT RATIO 1.1
[2017-03-23 15:59] LABS: PARTIAL THROMBOPLASTIN TIME 30.4 Sec (25.0-35.0)
[2017-03-23] MEDS ORDERED: LIDOCAINE 2% (SDV) 5 ML INJ ONE (18:17)
[2017-03-23] MEDS ORDERED: PROPOFOL 20 ML ONE ×2 (18:17→19:04)
[2017-03-23] MEDS ORDERED: MIDAZOLAM 1 MG/ML 2 ML INJ ONE ×2 (18:17→19:47)
[2017-03-23] MEDS ORDERED: SUCCINYLCHOLINE CHLORIDE 100 MG/5 ML SYG IV ONE (18:17)
[2017-03-23] MEDS ORDERED: FENTAnyl 50 MCG/ML VIAL ONE (18:45)
[2017-03-23] MEDS ORDERED: PHENYLephrine (100 MCG/ML) 5ML SYG ONE (18:52)
[2017-03-23] MEDS ORDERED: EPHEDrine SULFATE 50 MG/5 ML SYG ONE (19:01)
[2017-03-23] MEDS ORDERED: ONDANSETRON 4 MG INJ ONE (19:04)
[2017-03-23] MEDS ORDERED: FAMOTIDINE 20 MG INJ ONE (19:04)
[2017-03-23] MEDS ORDERED: DEXAMETHASONE 4 MG/ML 1 ML INJ ONE (19:04)
[2017-03-23] MEDS ORDERED: CEFAZOLIN 1 GM INJ ONE (19:07)
[2017-03-23] MEDS ORDERED: DIPHENHYDRAMINE 50 MG INJ IV PRN (19:30)
[2017-03-23] MEDS ORDERED: PROCHLORPERAZINE 10 MG INJ IV PRN (19:30)
[2017-03-23] MEDS ORDERED: MEPERIDINE 25 MG INJ IV PRN (19:30)
[2017-03-23] MEDS ORDERED: GLYCOPYRROLATE 0.4 MG INJ ONE (19:56)
[2017-03-23] MEDS ORDERED: ROCURONIUM 50 MG INJ ONE (19:56)
[2017-03-23] MEDS ORDERED: NEOSTIGMINE 3 MG/3 ML SYRINGE ONE (19:56)
[2017-03-23] MEDS ORDERED: BUPIVACAINE 0.25%/EPI (SDV) 30 ML INJ ONE (20:01)
[2017-03-23] MEDS ORDERED: HYDROmorphONE 2 MG/ML SYG ONE (20:07)
[2017-03-23] MEDS: HYDROmorphONE (0.2 MG/ML) 10ML SYG IV PRN ×3 (21:57→22:32)
[2017-03-23] MEDS: FENTAnyl 50 MCG/ML VIAL IV PRN ×2 (22:02→22:25)
--- NOTE | 2017-03-23 23:04 | OPR ---
Date/Time of Note Date/Time of Note DATE: 03/23/17 TIME: 22:34 Operative Report Free Text/Dictation 31-year-old with vaginal bleeding, right lower abdominal pain, positive test, no evidence of IUP with ultrasound finding of a complex 2.7 cm right adnexal mass concerning for possible ectopic . She presented with right lower abdominal pain to emergency room. Due to concern for ectopic versus early SAB she was counseled regarding different treatment options including medical management with methotrexate with close serial follow-up with HCG versus D&C with possible laparoscopy possible salpingostomy versus salpingectomy for, definitive diagnosis and treatment. She desires to proceed with surgical management. She was consented for D&C and diagnostic laparoscopy possible salpingostomy possible salpingectomy possible open and lysis of adhesion and possible removal of ovarian cyst. She verbalized understanding all surgical procedure risks including infection, bleeding, damage to surrounding structures including bowel and bladder and risk of blood transfusion, including but not limited to blood borne infection including HIV, hepatitis B and C and transfusion reactions. Also increased risk of ectopic and future pregnancies discussed with the patient in detail. Informed consent was obtained. Patient then received a dose of Ancef prior to be taken to the operating room please see the. Description of the procedure below Procedure Date: Mar 23, 2017 Preoperative Diagnosis 1. Ectopic versus early SAB Postoperative Diagnosis 1. Right ampullary ectopic , size about 2 cm. 2. Omental adhesions to the left lower abdominal wall as well as some filmy adhesions of the uterus to anterior lower abdominal wall , adhesion of the omentum to the dome of the bladder and adhesion of right tube to the right lower abdominal wall. Ampullary isthmic portion of the right tube was immobile due to adhesion to the anterior lower abdominal wall Normal bilateral ovaries as well as normal size uterus noted Surgeon: RODRIGO HIDALGO MD [place]minster Weaver: JAMES CALDWELL MD Anesthesia: general Anesthesiologist: RADHA SOLIS MD Estimated Blood Loss: 50 - 100 ml's Specimens contents of right tubal obtained by removal an suctioning of blood clots and productive conception through flushing of the fluid through the salpingostomy that was performed an ampullary area of the right tube. Suction of the fluid with associated blood clots and POC were sent to pathology Complications: None Pt Condition Post Procedure: stable Disposition: PACU Indications Right lower abdominal pain Right complex adnexal mass early , dropping hCG Concern for ectopic Operative\Procedure Findings Right ampullary tubal ectopic gestation Adhesion of the ampullary isthmic portion of the tube to the right lower abdomen this portion of the tube was immobilized, Adhesions of omentum to the anterior left lower abdominal wall as well as some omental adhesion to the dome of the bladder filmy adhesion of the peritoneum to lower uterine segment and abdominal wall Normal bilateral ovaries Left tube normal Uterus normal size and shape No other pathology noted Procedure Description Patient was after consenting for procedure taken to the operating room she received a dose of Ancef 2 g prior to be taken to the operating room and was placed in the dorsal supine position and was placed on the general adequate anesthesia with endotracheal tube. After prepped and draped in the dorsal lithotomy position, Timeout was completed and the patient was identified correctly. Then exam under anesthesia was performed. Uterus about 8-9 cm size. No fullness in adnexa . A Hughes catheter was placed into the bladder for drainage of the urine throughout the procedure then first a bivalve speculum is placed inside the vagina. Anterior lip of the cervix was grasped with tenaculum Then using a uterine sound the depth of the uterus was measured and was 10 cm Then after dilatation of the cervix using Hegar dilator #4 and 5, and Vacurette #7 could passed through the cervix into the uterine cavity and after activation of the suction the entire uterine cavity and 360 was suction and suctioning was sent to pathology for frozen section. Pathology reported no evidence of chorionic villi At this time after Reprep and drape of the patient in the sterile fashion in dorsal lithotomy position. First and a HUMI manipulator was passed into the uterine cavity and its balloon was inflated and was transfixed. Then after changing the gloves attention was turned to the abdomen where after injection of 7 cc of quarter percent Marcaine into the umbilicus first and 5 mm incision was made inside the umbilicus. Attempt was made to enter abdominal cavity through the umbilical incision, and then through the 5 mm supraumbilical incision. Due to difficulty in entering to the abdominal wall. Decision was made to proceed first with insufflation with Veress needle. After passing the Veress needle through the anterior abdominal wall and after 2 snaps sound and negative suctioning and positive saline drop test that confirmed correct placement into the abdominal cavity insufflation performed using CO2 gas. Opening pressure was 7 mm. After insufflation about 4 L of CO2 gas then using 5 mm trocar through the supraumbilical incision under direct visualization diagnostic hysteroscopy performed. The pelvis evaluated. There was evidence of a 2 cm ectopic and right to be an ampullary area. The right tube was immobilized in the isthmic ampullary portion due to adhesion to the right lower abdominal wall otherwise looks normal. There are tubal appear to be unruptured. The tube in the left side appeared to be normal. Both ovaries were visualized and appeared to be normal. Uterus normal size midline. There was some omental adhesion to the left lower abdomen as well as some adhesion of the omentum to the bladder at the dome and some filmy adhesion of the peritoneum to the uterus and anterior abdominal wall noted. At this time after negative transillumination test under direct visualization versus a 5 mm incision was made in the left lower quadrant and the level about 3 cm below the umbilicus and under direct visualization the trocar was passed and placed into the abdominal cavity without any complication. The procedure proceeded in a similar fashion in the right side as well in the similar position. Then first using Weston device some of the omental adhesion to the left lower abdomen that was somehow on the way was taken down after coagulation and cutting with careful attention to adjacent structures. Then first after lysis of peritubal adhesion with careful attention to underlying structures including abdominal wall these spleen adhesions were taken down and mobilization of the right tube was obtained. Then using laparoscopic scissor, and coagulation the surface of the antrum is arthritic portion of the right tube was coagulated and then cut and a 1 cm opening was made in the ampullary area where the ectopic gestation was located then small amount of blood clots as well as POC that was contained into the tube was removed as well as suctioned by suctioning and then irrigation of the entire tube in this area and flushing the rest of the tissue through the tube. Then they fluid into the pelvis was suctioned with contained POC and blood clot that was contained inside the tube and was sent separately to pathology There was small filmy adhesion of the uterus to the lower abdominal wall that was also lysed. Hemostasis was confirmed by negative pressure check. Of note that the tube obtained its anatomical location and mobility after lysis of these peritubal adhesion after confirmation about excellent hemostasis and reevaluation of the Pelvis and upper abdomen, no concern noted about any complication or damage to other structures. At this point the instruments removed. Desufflation performed while the patient was in Trendelenburg position and after asking anesthesia to get 5 breaths to the patient. Then the trochars in all 3 port site removed. There was small amount of oozing from subcutaneous tissue in the right 5 mm trocar site that was controlled using Bovie and at the end the fourth laparoscopic port site in the right and left lower abdomen and in the umbilicus and supraumbilical area was repaired using 3-0 Monocryl Attention was then turned to the vagina where the HUMI manipulator was removed after desufflation with balloon. The anterior lip of the cervix evaluated there was small lacerations that was repaired using 2-0 Vicryl. Hemostasis of the superficial cervical laceration obtained with Vicryl. Then the instrument was removed from the vagina. Sponge lap and needle counts were correct 2 Patient tolerated the procedure well and was transferred to recovery room in stable condition RODRIGO HIDALGO MD Mar 23, 2017 22:45
[2017-03-24] MEDS: HYDROCODONE/APAP (5/325) TAB PO PRN ×6 (00:27→22:23)
[2017-03-24] MEDS: LACTATED RINGER'S 1,000 ML IV SCH ×6 (00:31→22:45)
[2017-03-24 00:42] VITALS: BP 157/61; RESP 20
[2017-03-24] MEDS: IBUPROFEN 600 MG TAB PO PRN ×2 (03:07→23:21)
[2017-03-24 07:17] VITALS: BP 99/61; RESP 16
--- NOTE | 2017-03-24 07:53 | RADRPT ---
PROCEDURE: XR Chest. CLINICAL INDICATION: Chest pain TECHNIQUE: Portable single view of the chest COMPARISON: 11/16/2016 FINDINGS: The heart size remains within normal limits. Lung volumes are reduced. There is mild interstitial prominence. Subtle patchy right base opacity is seen which may be due to crowding or early infiltra te. No other area of infiltrate is seen. No pleural effusion or overt congestive heart failure is seen. IMPRESSION: Right base crowding versus early infiltrate. RPTAT: [facility]BE Physician Nitza Date Time Electronically viewed and signed by Paula Saunders Physician on 03/24/2017 07:52 LE/
--- NOTE | 2017-03-24 09:56 | RADRPT ---
Vent Rate: 64 bpm RR Interval: 0 msec PA Interval: 146 msec QRS Duration: 92 msec QT Interval: 400 msec QTC Interval: 412 msec P-R-T Webb: 76 - 63 - 56 degrees Normal sinus rhythm Normal ECG No previous tracing available for comparison Electronically Signed By: Josias Melton [id number]
[2017-03-24 11:05] LABS: ADD SCAN DIFF NO
[2017-03-24 11:09] LABS: BASOPHILS % 0.2 % (0.0-2.0); EOSINOPHILS % 0.1 % (0.0-7.0); HEMATOCRIT 34.6 % (37.0-47.0); HEMOGLOBIN 11.5 g/dl (12.0-16.0); LYMPHOCYTES # 1.3 10^3/ul (0.8-2.9); LYMPHOCYTES % 8.2 % (15.0-51.0); MEAN CORPUSCULAR HEMOGLOBIN 29.5 pg (29.0-33.0); MEAN CORPUSCULAR HGB CONC 33.2 g/dl (32.0-37.0); MEAN CORPUSCULAR VOLUME 88.7 fl (82.0-101.0); MEAN PLATELET VOLUME 11.2 fl (7.4-10.4); MONOCYTE # 0.7 10^3/ul (0.3-0.9); MONOCYTES % 4.4 % (0.0-11.0); NEUTROPHIL # 13.3 10^3/ul (1.6-7.5); NEUTROPHILS % 86.7 % (39.0-77.0); PLATELET COUNT 276 10^3/UL (140-415); RED CELL DISTRIBUTION WIDTH 13.3 % (11.5-14.5); WHITE BLOOD COUNT 15.3 10^3/ul (4.8-10.8)
--- NOTE | 2017-03-24 13:05 | CONS ---
DATE OF ADMISSION: 03/24/2017 DATE OF CONSULTATION: 03/24/2017 REASON FOR CONSULTATION: Evaluation for pneumonia. HISTORY OF PRESENT ILLNESS: The patient is a 31-year-old female with a history of lupus, otherwise no significant medical history. The patient presented with abdominal pain. She was found to have e ctopic . She was taken to the OR by [employer]. The patient did well postoperatively. A [facility] consult was placed as the patient had a chest x-ray that showed right basilar crowding versus p ossible early infiltrate. Of note, the patient has no signs of pneumonia with no cough, no fever. The patient had no white count on presentation. She did have mild elevation of her white count afte r surgery, most likely reactive. The patient has no other complaints at this time except for diffic ulty taking deep breaths secondary to her abdominal pain and surgery. PAST MEDICAL HISTORY: Lupus and now ectopic , status post surgical repair postop day #1. She had had C-sections. HOME MEDICATIONS: None. ALLERGIES: NO KNOWN DRUG ALLERGIES. FAMILY HISTORY: Cancer and diabetes. SOCIAL HISTORY: Denies any alcohol, tobacco, or drug abuse. REVIEW OF SYSTEMS: A 12-point review of systems is negative except for that discussed in the HPI. PHYSICAL EXAMINATION: VITAL SIGNS: Temperature 98.3, pulse 69, respiratory rate 16, blood pressure is 99/61, saturation 1 00% on 2 liters. GENERAL: No acute distress, alert and oriented. HEENT: Normocephalic, atraumatic. Pupils equal and reactive to light. CHEST: Clear to auscultation. CARDIOVASCULAR: Regular rate and rhythm. ABDOMEN: Nondistended, soft, tender. EXTREMITIES: No clubbing, cyanosis, or edema. LABORATORY DATA: White count 16.3, hemoglobin 11.5, platelets are 276. Chemistry within normal castillo its except for .1. INR is 1.03. UA is normal. DIAGNOSTICS: Chest x-ray shows right basilar crowding versus early infiltrate. OB ultrasound had s howed no intrauterine gestation, a 2.7 mass in the right adnexa suspicious for ectopic pregnan cy. ASSESSMENT AND PLAN: 1. Ectopic , status post surgical repair. The patient is doing well. Further management per [employer]. 2. Leukocytosis, likely reactive. 3. Right basilar opacity. This is very mild and likely secondary to atelectasis as the patient is having difficulty taking deep inspirations secondary to her abdominal pain. Encourage spirometry. No indication for antibiotics. The patient is medically cleared for discharge. There is no medical intervention necessary, no further treatment recommended. Once again, the patient is cleared for d ischarge from a medicine standpoint. Dictated By: MURTAZA MOBLEY/CARLOTA Conf#: [id number] DID#: [id number]
[2017-03-24 20:00] VITALS: BP 101/48; PULSE 105; RESP 18
--- NOTE | 2017-03-24 20:15 | PN ---
Date/Time of Note Date/Time of Note DATE: 03/24/17 TIME: 20:05 Assessment/Plan VTE Prophylaxis VTE Contraindication Reason: amputee, anticoagulation not tolerated VTE Confirmed-Overlap Tx Rcvd Pt Rcvd Overlap Therapy: No Reason for no Overlap Therapy: Contraindicated Lines/Catheters Central line insert date: Mar 28, 2017 Central line still needed: No Urinary Cath still in place: No Subjective 24 Hr Interval Summary Free Text/Dictation Laboratory Tests Test 03/24/17 10:15 03/24/17 10:45 Urine Test NEGATIVE White Blood Count 15.310^3/ul Red Blood Count 3.9010^6/ul Hemoglobin 11.5g/dl Hematocrit 34.6% Mean Corpuscular Volume 88.7fl Mean Corpuscular Hemoglobin 29.5pg Mean Corpuscular Hemoglobin Concent 33.2g/dl Red Cell Distribution Width 13.3% Platelet Count 36003^3/UL Mean Platelet Volume 11.2fl Neutrophils % 86.7% Lymphocytes % 8.2% Monocytes % 4.4% Eosinophils % 0.1% Basophils % 0.2% Nucleated Red Blood Cells % 0.0/100WBC Neutrophils # 13.310^3/ul Lymphocytes # 1.310^3/ul Monocytes # 0.710^3/ul Eosinophils # 0.010^3/ul Basophils # 0.010^3/ul Nucleated Red Blood Cells # 0.010^3/ul Current Medications Medications (Trade) Dose Ordered Sig/Tony Route PRN Reason Start Time Stop Time Status Last Admin Dose Admin Acetaminophen 650 mg 650 mg ONCE STAT PO 03/23/17 08:32 03/23/17 08:33 DC 03/23/17 08:35 650 MG Sodium Chloride (NS) 1,000 ml @ 1,000 mls/hr Q1H ONCE IV 03/23/17 11:30 03/23/17 12:29 DC 03/23/17 11:28 1,000 MLS/HR Ondansetron HCl (Zofran Inj) 4 mg BRIDGE ORDER PRN IV NAUSEA AND/OR VOMITING 03/23/17 14:30 03/23/17 19:25 DC Acetaminophen 650 mg 650 mg ER BRIDGE PRN PO MILD PAIN/FEVER 03/23/17 14:30 03/23/17 19:25 DC Lactated Ringer's 1,000 ml @ 125 mls/hr Q8H IV 03/23/17 14:45 03/24/17 14:45 125 MLS/HR Cefazolin Sodium/ Dextrose 50 ml @ 100 mls/hr ONCE IV 03/23/17 15:00 03/23/17 15:24 DC Oxytocin/Lactated Ringer's 500 ml @ 0 mls/hr ONCE PRN IV For Hemorrhage Management 03/23/17 15:00 03/23/17 15:00 DC Methylergonovine Maleate (Methergine) 0.2 mg ONCE PRN IM VAGINAL BLEEDING 03/23/17 15:00 03/23/17 15:00 DC Carboprost Tromethamine (Hemabate) 250 mcg ONCE PRN IM VAGINAL BLEEDING 03/23/17 15:00 03/23/17 15:00 DC Misoprostol 1000 mcg 1,000 mcg ONCE PRN DE VAGINAL BLEEDING 03/23/17 15:00 03/23/17 15:00 DC Cefazolin Sodium/ Dextrose (Ancef 2 Gm/50 ml (Pmx)) 50 ml @ 100 mls/hr ONCE IVPB 03/23/17 15:00 03/23/17 15:24 DC Lidocaine (Xylocaine 2% (Sdv)) 100 mg STK-MED ONCE .ROUTE 03/23/17 18:17 03/23/17 19:19 DC Succinylcholine Chloride 100 mg 100 mg STK-MED ONCE IV 03/23/17 18:17 03/23/17 19:19 DC Propofol (Diprivan) 20 ml @ ud STK-MED ONCE .ROUTE 03/23/17 18:17 03/23/17 19:19 DC Midazolam HCl (Versed) 2 mg STK-MED ONCE .ROUTE 03/23/17 18:17 03/23/17 19:20 DC Fentanyl (Sublimaze) 100 mcg STK-MED ONCE .ROUTE 03/23/17 18:45 03/23/17 19:20 DC Phenylephrine HCl (Abner-Synephrine Inj Syg) 500 mcg STK-MED ONCE .ROUTE 03/23/17 18:52 03/23/17 19:20 DC Ephedrine Sulfate 50 mg 50 mg STK-MED ONCE .ROUTE 03/23/17 19:01 03/23/17 19:20 DC Propofol (Diprivan) 20 ml @ ud STK-MED ONCE .ROUTE 03/23/17 19:04 03/23/17 19:20 DC Ondansetron HCl (Zofran Inj) 4 mg STK-MED ONCE .ROUTE 03/23/17 19:04 03/23/17 19:20 DC Famotidine (Pepcid Iv) 20 mg STK-MED ONCE .ROUTE 03/23/17 19:04 03/23/17 19:20 DC Cefazolin Sodium (Ancef) 1 gm STK-MED ONCE .ROUTE 03/23/17 19:07 03/23/17 19:20 DC Dexamethasone (Decadron) 4 mg STK-MED ONCE .ROUTE 03/23/17 19:04 03/23/17 19:21 DC Hydromorphone HCl (Dilaudid (Rec)) 0.4 mg PACU ORDER PRN IV PAIN 03/23/17 19:30 03/23/17 23:30 DC 03/23/17 22:32 0.4 MG Fentanyl (Sublimaze) 25 mcg PACU ORDER PRN IV PAIN 03/23/17 19:30 03/23/17 23:30 DC 03/23/17 22:25 25 MCG Ondansetron HCl (Zofran Inj) 4 mg PACU ORDER PRN IV NAUSEA AND/OR VOMITING 03/23/17 19:30 03/23/17 23:30 DC 03/23/17 21:58 4 MG Prochlorperazine (Compazine Inj) 5 mg PACU ORDER PRN IV NAUSEA AND/OR VOMITING 03/23/17 19:30 03/23/17 23:30 DC Meperidine HCl (Demerol) 25 mg PACU ORDER PRN IV POST-OP RIGORS 03/23/17 19:30 03/23/17 23:30 DC Diphenhydramine HCl (Benadryl) 25 mg PACU ORDER PRN IV PRURITUS 03/23/17 19:30 03/23/17 23:30 DC Bupivacaine HCl/ Epinephrine Bitart 30 ml 30 ml STK-MED ONCE .ROUTE 03/23/17 20:01 03/23/17 20:02 DC 03/23/17 20:48 20 ML Lactated Ringer's (Lr) 1,000 ml @ 100 mls/hr Q10H IV 03/23/17 23:04 03/24/17 18:24 100 MLS/HR Ibuprofen (Motrin) 600 mg Q8H PRN PO PAIN AND OR ELEVATED TEMP 03/23/17 23:30 03/24/17 03:07 600 MG Acetaminophen/ Hydrocodone Bitart ([place] (5/325)) 1 tab Q4H PRN PO PAIN LEVEL 6-10 03/23/17 23:30 03/24/17 18:44 1 TAB Ondansetron HCl (Zofran Inj) 4 mg Q6H PRN IV NAUSEA AND/OR VOMITING 03/23/17 23:30 Midazolam HCl (Versed) 2 mg STK-MED ONCE .ROUTE 03/23/17 19:47 03/24/17 15:56 DC Glycopyrrolate (Robinul) 0.4 mg STK-MED ONCE .ROUTE 03/23/17 19:56 03/24/17 15:57 DC Neostigmine Methylsulfate (Neostigmine) 3 mg STK-MED ONCE .ROUTE 03/23/17 19:56 03/24/17 15:57 DC Rocuronium Union (Zemuron) 50 mg STK-MED ONCE .ROUTE 03/23/17 19:56 03/24/17 15:57 DC Hydromorphone HCl (Dilaudid) 2 mg STK-MED ONCE .ROUTE 03/23/17 20:07 03/24/17 15:57 DC March 24, 2017 Hospital progress note This patient is a 31 years old 4 para 3 with amenorrhea of 5 weeks and 6 days based on last menstrual period of February 10, 2017 who came to the emergency room complaining of vaginal bleeding last week and beta hCG was taken which was 383 and again on the on 03/23/2017 she came in again and her beta-hCG was 118. Due to drop of her beta-hCG and the lower abdominal pain that she had suspicion of ectopic was raised. And she was admitted in the hospital She underwent a D&C which did not show any chorionic villi on pathology. Then she had a laparoscopic surgery which revealed an ectopic on her right 2 with some intraperitoneal hemorrhage and adhesions the adhesions were laparoscopically lysed at age of salpingostomy were performed on the right to removing the product of conception. Today which is her first postoperative day she still complaining of pain and difficulty moving I was trying to convince her to go home however she is complaining of too much pain and discomfort to go home Laboratory Tests Test 03/24/17 10:15 03/24/17 10:45 Urine Test NEGATIVE White Blood Count 15.310^3/ul Red Blood Count 3.9010^6/ul Hemoglobin 11.5g/dl Hematocrit 34.6% Mean Corpuscular Volume 88.7fl Mean Corpuscular Hemoglobin 29.5pg Mean Corpuscular Hemoglobin Concent 33.2g/dl Red Cell Distribution Width 13.3% Platelet Count 11027^3/UL Mean Platelet Volume 11.2fl Neutrophils % 86.7% Lymphocytes % 8.2% Monocytes % 4.4% Eosinophils % 0.1% Basophils % 0.2% Nucleated Red Blood Cells % 0.0/100WBC Neutrophils # 13.310^3/ul Lymphocytes # 1.310^3/ul Monocytes # 0.710^3/ul Eosinophils # 0.010^3/ul Basophils # 0.010^3/ul Nucleated Red Blood Cells # 0.010^3/ul Current Medications Medications (Trade) Dose Ordered Sig/Tony Route PRN Reason Start Time Stop Time Status Last Admin Dose Admin Acetaminophen 650 mg 650 mg ONCE STAT PO 03/23/17 08:32 03/23/17 08:33 DC 03/23/17 08:35 650 MG Sodium Chloride (NS) 1,000 ml @ 1,000 ml/hr Q1H ONCE IV 03/23/17 11:30 03/23/17 12:29 DC 03/23/17 11:28 1,000 MLS/HR Ondansetron HCl (Zofran Inj) 4 mg BRIDGE ORDER PRN IV NAUSEA AND/OR VOMITING 03/23/17 14:30 03/23/17 19:25 DC Acetaminophen 650 mg 650 mg ER BRIDGE PRN PO MILD PAIN/FEVER 03/23/17 14:30 03/23/17 19:25 DC Lactated Ringer's 1,000 ml @ 125 ml/hr Q8H IV 03/23/17 14:45 03/24/17 14:45 125 MLS/HR Cefazolin Sodium/ Dextrose 50 ml @ 100 mls/hr ONCE IV 03/23/17 15:00 03/23/17 15:24 DC Oxytocin/Lactated Ringer's 500 ml @ 0 ml/hr ONCE PRN IV For Hemorrhage Management 03/23/17 15:00 03/23/17 15:00 DC Methylergonovine Maleate (Methergine) 0.2 mg ONCE PRN IM VAGINAL BLEEDING 03/23/17 15:00 03/23/17 15:00 DC Carboprost Tromethamine (Hemabate) 250 mcg ONCE PRN IM VAGINAL BLEEDING 03/23/17 15:00 03/23/17 15:00 DC Misoprostol 1000 mcg 1,000 mcg ONCE PRN DE VAGINAL BLEEDING 03/23/17 15:00 03/23/17 15:00 DC Cefazolin Sodium/ Dextrose (Ancef 2 Gm/50 ml (Pmx)) 50 ml @ 100 mls/hr ONCE IVPB 03/23/17 15:00 03/23/17 15:24 DC Lidocaine (Xylocaine 2% (Sdv)) 100 mg STK-MED ONCE .ROUTE 03/23/17 18:17 03/23/17 19:19 DC Succinylcholine Chloride 100 mg 100 mg STK-MED ONCE IV 03/23/17 18:17 03/23/17 19:19 DC Propofol (Diprivan) 20 ml @ ud STK-MED ONCE .ROUTE 03/23/17 18:17 03/23/17 19:19 DC Midazolam HCl (Versed) 2 mg STK-MED ONCE .ROUTE 03/23/17 18:17 03/23/17 19:20 DC Fentanyl (Sublimaze) 100 mcg STK-MED ONCE .ROUTE 03/23/17 18:45 03/23/17 19:20 DC Phenylephrine HCl (Abner-Synephrine Inj Syg) 500 mcg STK-MED ONCE .ROUTE 03/23/17 18:52 03/23/17 19:20 DC Ephedrine Sulfate 50 mg 50 mg STK-MED ONCE .ROUTE 03/23/17 19:01 03/23/17 19:20 DC Propofol (Diprivan) 20 ml @ ud STK-MED ONCE .ROUTE 03/23/17 19:04 03/23/17 19:20 DC Ondansetron HCl (Zofran Inj) 4 mg STK-MED ONCE .ROUTE 03/23/17 19:04 03/23/17 19:20 DC Famotidine (Pepcid Iv) 20 mg STK-MED ONCE .ROUTE 03/23/17 19:04 6/7/17 19:20 DC Cefazolin Sodium (Ancef) 1 gm STK-MED ONCE .ROUTE 03/23/17 19:07 03/23/17 19:20 DC Dexamethasone (Decadron) 4 mg STK-MED ONCE .ROUTE 03/23/17 19:04 03/23/17 19:21 DC Hydromorphone HCl (Dilaudid (Rec)) 0.4 mg PACU ORDER PRN IV PAIN 03/23/17 19:30 03/23/17 23:30 DC 03/23/17 22:32 0.4 MG Fentanyl (Sublimaze) 25 mcg PACU ORDER PRN IV PAIN 03/23/17 19:30 03/23/17 23:30 DC 03/23/17 22:25 25 MCG Ondansetron HCl (Zofran Inj) 4 mg PACU ORDER PRN IV NAUSEA AND/OR VOMITING 03/23/17 19:30 03/23/17 23:30 DC 03/23/17 21:58 4 MG Prochlorperazine (Compazine Inj) 5 mg PACU ORDER PRN IV NAUSEA AND/OR VOMITING 03/23/17 19:30 03/23/17 23:30 DC Meperidine HCl (Demerol) 25 mg PACU ORDER PRN IV POST-OP RIGORS 03/23/17 19:30 03/23/17 23:30 DC Diphenhydramine HCl (Benadryl) 25 mg PACU ORDER PRN IV PRURITUS 03/23/17 19:30 03/23/17 23:30 DC Bupivacaine HCl/ Epinephrine Bitart 30 ml 30 ml STK-MED ONCE .ROUTE 03/23/17 20:01 03/23/17 20:02 DC 03/23/17 20:48 20 ML Lactated Ringer's (Lr) 1,000 ml @ 100 mls/hr Q10H IV 03/23/17 23:04 03/24/17 18:24 100 MLS/HR Ibuprofen (Motrin) 600 mg Q8H PRN PO PAIN AND OR ELEVATED TEMP 03/23/17 23:30 03/24/17 03:07 600 MG Acetaminophen/ Hydrocodone Bitart ([place]ynn (5/325)) 1 tab Q4H PRN PO PAIN LEVEL 6-10 03/23/17 23:30 6/8/17 18:44 1 TAB Ondansetron HCl (Zofran Inj) 4 mg Q6H PRN IV NAUSEA AND/OR VOMITING 03/23/17 23:30 Midazolam HCl (Versed) 2 mg STK-MED ONCE .ROUTE 03/23/17 19:47 03/24/17 15:56 DC Glycopyrrolate (Robinul) 0.4 mg STK-MED ONCE .ROUTE 03/23/17 19:56 03/24/17 15:57 DC Neostigmine Methylsulfate (Neostigmine) 3 mg STK-MED ONCE .ROUTE 03/23/17 19:56 03/24/17 15:57 DC Rocuronium Union (Zemuron) 50 mg STK-MED ONCE .ROUTE 03/23/17 19:56 03/24/17 15:57 DC Hydromorphone HCl (Dilaudid) 2 mg STK-MED ONCE .ROUTE 03/23/17 20:07 03/24/17 15:57 DC Constitutional: No chills, No diaphoresis, No disoriented, No febrile, No improved, No no complaints, No other, No poor po, No requiring IVF, No requiring O2 Eyes: No discharge, No no complaints, No other, No pain, No redness, No visual change ENT: No bleeding, No congestion, No discharge, No dysphagia, No no complaints, No other, No pain, No sore throat Respiratory: No cough, No no complaints, No other, No pain, No pleuritic pain, No shortness of breath, No sputum, No wheezing Cardiovascular: No chest pain, No edema, No lightheadedness, No no complaints, No orthopenea, No other, No palpitations, No paroxysmal nocturnal dyspnea Gastrointestinal: other (She has some abdominal tenderness as a result of the surgery no other major medical problem), No blood, No constipation, No decreased appetite, No diarrhea, No flatus, No nausea, No no complaints, No pain, No passing stool, No vomiting Additional Comments As I mentioned due to pain and discomfort in moving patient went to stay here today and go home tomorrow Exam/Review of Systems Vital Signs Vitals Vital Signs Date Time Temp Pulse Resp B/P Pulse Ox O2 Delivery O2 Flow Rate FiO2 6/8/17 07:17 98.3 69 16 99/61 100 03/23/17 23:30 Nasal Cannula 2.0 Intake and Output 03/23/17 03/23/17 03/24/17 14:59 22:59 06:59 Intake Total 1000 ml 2000 ml 980 ml Output Total 1150 ml 1300 ml Balance 1000 ml 850 ml -320 ml Results Result Diagram: 03/24/17 1045 03/23/17 0843 Results 24 hrs Laboratory Tests Test 03/24/17 10:15 03/24/17 10:45 Urine Test NEGATIVE White Blood Count 15.3 #H Red Blood Count 3.90 L Hemoglobin 11.5 L Hematocrit 34.6 L Mean Corpuscular Volume 88.7 Mean Corpuscular Hemoglobin 29.5 Mean Corpuscular Hemoglobin Concent 33.2 Red Cell Distribution Width 13.3 Platelet Count 276 Mean Platelet Volume 11.2 H Neutrophils % 86.7 H Lymphocytes % 8.2 L Monocytes % 4.4 Eosinophils % 0.1 Basophils % 0.2 Nucleated Red Blood Cells % 0.0 Neutrophils # 13.3 H Lymphocytes # 1.3 Monocytes # 0.7 Eosinophils # 0.0 Basophils # 0.0 Nucleated Red Blood Cells # 0.0 Medications Medications Current Medications Lactated Ringer's 1,000 ml @ 125 mls/hr Q8H IV Last administered on 03/24/17 14:45; Admin Dose 125 MLS/HR; Start 03/23/17 at 14:45 Lactated Ringer's (Lr) 1,000 ml @ 100 mls/hr Q10H IV Last administered on 18:24; Admin Dose 100 MLS/HR; Start 03/23/17 at 23:04 Ibuprofen (Motrin) 600 mg Q8H PRN PO PAIN AND OR ELEVATED TEMP Last administered on 03/24/17 03:07; Admin Dose 600 MG; Start 03/23/17 at 23:30 Acetaminophen/ Hydrocodone Bitart ([place]ynn (5/325)) 1 tab Q4H PRN PO PAIN LEVEL 6 -10 Last administered on 03/24/17 18:44; Admin Dose 1 TAB; Start 03/23/17 at 23: 30 Ondansetron HCl (Zofran Inj) 4 mg Q6H PRN IV NAUSEA AND/OR VOMITING; Start 6/7 /17 at 23:30 FOROOHAR,HESHMAT MD Mar 24, 2017 20:14
[2017-03-24 22:30] VITALS: BP 118/60; PULSE 89; RESP 18
[2017-03-25] MEDS ORDERED: HYDROmorphONE 1 MG/ML SYG IV ONE (00:39)
[2017-03-25 00:56] VITALS: BP 110/53; PULSE 74; RESP 18
[2017-03-25] MEDS: LACTATED RINGER'S 1,000 ML IV SCH ×4 (04:36→15:04)
[2017-03-25 07:18] VITALS: BP 114/67; RESP 18
[2017-03-25] MEDS: HYDROCODONE/APAP (5/325) TAB PO PRN ×2 (09:16→15:00)
--- NOTE | 2017-03-25 12:27 | QN ---
Documentation Comment POD#2 ,patient is stable incisions are healing well Gen NAD Abd soft NT ND Genit:No blood at perinum --->can be discharge --->follow up with in 2 weeks --->precautions discussed with patient PREMA SHAH M.D. Mar 25, 2017 12:27
--- NOTE | 2017-03-25 12:30 | DS ---
Date/Time of Note Date/Time of Note DATE: 03/25/17 TIME: 12:29 Discharge Summary Admission/Discharge Info Admit Date/Time Mar 24, 2017 at 00:05 Discharge Date/Time mar Final Diagnosis Right ampullary ectopic , size about 2 cm. Patient Condition: Stable Procedures laparoscpic right salpingectomy and D&C Hx of Present Illness 31-year-old with amenorrhea for 5 weeks and 6 days based on last menstrual period (February 10, 2017) with bleeding in early for the past week on and off, and positive serum test and lower abdominal pain presented for follow-up HCG serum after 48 hours. LMP: February 10, 2017. Serum hCG 2 days ago 383 and today 118. Shows a drop of 69%. Had a pelvic ultrasound 2 days ago that was essentially nondiagnostic with no evidence of IUP or adnexal mass. Ultrasound today showed evidence of 2.7 cm right adnexal complex mass concerning for possible ectopic with no evidence of IUP. Patient also with right lower abdominal pain 6-7 out of 10., Feels bloated also complaining of dizziness and nausea. She could not eat since last night. 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 Current was desired. Patient denies any other abdominal surgery besides . Denies any prior history of STD Hospital Course Right lower abdominal pain Bleeding in early , drop in serum hCG in 48 hours. Right adnexal complex mass Above finding concerning for possible ectopic versus missed intrauterine early I have discussed with the patient about all the options for treatment including medical managemen using methotrexatet, and a close follow-up and monitoring of serum hCG versus surgical management with D&C with frozen evaluation of intrauterine contents and then diagnostic laparoscopy if no villi find in D&C, possible removal of ectopic with salpingectomy possible salpingectomy possible lysis of adhesion. Risk and benefit of each discussed in detail with the patient. Patient currently does not have any commercial real estate manager. She is concerned that she might not be able to have adequate follow-up and desires to proceed with surgical management. Risk of procedure including risk of infection, bleeding, damage to surrounding structures including bowel and bladder and risk of conversion to open procedure , risk of salpingectomy that might affect her future fertility, risk of losing ovary or tube that might again affect her future fertility discussed with the patient in detail . Informed consent was obtained. Patient verbalized understanding all above risks. Discussed the procedure will be started as D&C. The uterine content will be sent to pathology for frozen evaluation. If there are any evidence of villi, will decide to continue follow-up with serial hCG check with or without methotrexate. If no evidence of villi found in the pathology evaluation of uterine contents, will proceed with diagnostic laparoscopy. She may need laparoscopic salpingostomy versus salpingectomy. The risk of conversion to open procedure due to prior surgeries and scar and adhesion discussed with the patient patient accept blood transfusion in case if necessary. Risk of blood transfusion including risk of HIV, hepatitis B and C and transfusion reactions Discussed with the patient as well in detail Patient verbalized understanding all above. All questions were answered to the patient's best satisfaction. We will proceed with above plan Keep the patient n.p.o. IV fluid D5 LR at 125 cc/h Consented for D&C, possible diagnostic laparoscopy, possible lysis of adhesion, possible salpingectomy or salpingostomy, possible removal of ovarian cyst, possible conversion to open laparotomy possible blood transfusion Home Meds Active Scripts Hydrocodone/Acetaminophen ([place] 5-325 Tablet) 1 Each Tablet, 1 TAB PO Q6H Y for PAIN, #10 TAB Prov:KE MEZA MD 03/21/17 Hydrocodone/Acetaminophen ([place] 5-325 Tablet) 1 Each Tablet, 1 TAB PO Q6H Y for SEVERE PAIN LEVEL 7-10, #20 TAB Prov:EMMA GIL NP 01/13/17 Ibuprofen* (Motrin*) 600 Mg Tab, 600 MG PO Q6, #30 TAB Prov:AMY BROWNC 12/17/16 Cephalexin* (Keflex*) 500 Mg Capsule, 500 MG PO QID for 7 Days, CAP Prov:AMY BROWN-C 12/17/16 Sulfamethoxazole-Trimethoprim* (Bactrim* DS) 800-160 Mg Tab, 1 TAB PO BID for 10 Days, TAB Prov:AMY BROWN-C 12/17/16 Hydrocodone/Acetaminophen ([place] 5-325 Tablet) 1 Each Tablet, 1 TAB PO Q6H Y for PAIN, #20 TAB Prov:SHANON BUCHANAN 11/16/16 Ibuprofen* (Motrin*) 600 Mg Tab, 600 MG PO Q6H Y for PAIN AND OR ELEVATED TEMP, #30 TAB Prov:HOSEA DUENAS MD 11/10/16 Ondansetron (Zofran Odt) 4 Mg Tab.rapdis, 4 MG PO Q6, #10 Prov:GREEN,MARIA TERESA DO 08/10/16 Hydrocodone/Acetaminophen ([place] 5-325 Tablet) 1 Each Tablet, 1 EACH PO Q6, #20 TAB Prov:GREEN,MARIA TERESA DO 08/10/16 Hydrocodone/Acetaminophen ([place] 5-325 Tablet) 1 Each Tablet, 1 EACH PO Q6, #14 TAB Prov:GREEN,MARIA TERESA DO 07/24/16 Tramadol HCl (Tramadol HCl) 50 Mg Tablet, 50 MG PO Q4 Y for PAIN, #20 TAB Prov:HUMBERTO ROSA PA-C 06/07/16 Hydrocodone Bit-Acetaminophen* ([place]*) 5-325 Mg Tab, 1 TAB PO Q6 Y for PAIN, # 20 TAB Prov:EMMA GIL NP 12/03/15 Reported Medications Calcium Carbonate/Vitamin D3 ([place] 500+D Tablet) 1 Each Tablet, 1 TAB PO, TAB 07/24/16 Hydroxychloroquine Sulfate* (Plaquenil*) 200 Mg Tab, 200 MG PO DAILY, TAB 07/24/16 Follow-up Plan 2 weeks with Primary Care Provider Elida Michel Pending Labs Laboratory Tests Test 03/24/17 21:20 Beta HCG, Quantitative 49.8mIU/ml PREMA SHAH M.D. Mar 25, 2017 12:30
--- NOTE | 2017-03-25 16:07 | PN ---
Date/Time of Note Date/Time of Note DATE: 03/25/17 TIME: 16:05 Assessment/Plan VTE Prophylaxis VTE Prophylaxis Intervention: other Lines/Catheters IV [facility] (from [facility] Saline Lock Urinary Cath still in place: No Assessment/Plan Chief Complaint/Hosp Course 1. Ectopic , status post surgical repair. The patient is doing well. 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 Leukocytosis, likely reactive 3. Right basilar opacity secondary to atelectasis from decreased inspirations from pain Continue incentive spirometry Discharge planning: From a medicine standpoint patient is stable for discharge and does not need any new medications, patient does not need antibiotics Problems: Subjective 24 Hr Interval Summary Genitourinary: other (Vaginal bleeding) Exam/Review of Systems Vital Signs Vitals Vital Signs Date Time Temp Pulse Resp B/P Pulse Ox O2 Delivery O2 Flow Rate FiO2 03/25/17 07:18 97.7 61 18 114/67 100 03/25/17 00:56 Room Air 03/24/17 20:00 2.0 Intake and Output 03/24/17 03/24/17 03/25/17 15:00 23:00 07:00 Intake Total 1560 ml 1340 ml Output Total 1500 ml 1200 ml Balance 60 ml 140 ml Exam Constitutional: alert, oriented Respiratory: clear to auscultation Cardiovascular: regular rate and rhythm Gastrointestinal: soft, No distended Musculoskeletal: nl extremities to inspection Results Result Diagram: 03/24/17 1045 03/23/17 0843 Results 24 hrs Laboratory Tests Test 03/24/17 21:20 Beta HCG, Quantitative 49.8 Medications Medications Current Medications Lactated Ringer's 1,000 ml @ 125 mls/hr Q8H IV Last administered on 03/24/17 14:45; Admin Dose 125 MLS/HR; Start 03/23/17 at 14:45 Lactated Ringer's (Lr) 1,000 ml @ 100 mls/hr Q10H IV Last administered on 04:36; Admin Dose 100 MLS/HR; Start 03/23/17 at 23:04 Ibuprofen (Motrin) 600 mg Q8H PRN PO PAIN AND OR ELEVATED TEMP Last administered on 03/24/17 23:21; Admin Dose 600 MG; Start 03/23/17 at 23:30 Acetaminophen/ Hydrocodone Bitart ([place] (5/325)) 1 tab Q4H PRN PO PAIN LEVEL 6 -10 Last administered on 03/25/17 15:00; Admin Dose 1 TAB; Start 03/23/17 at 23: 30 Ondansetron HCl (Zofran Inj) 4 mg Q6H PRN IV NAUSEA AND/OR VOMITING; Start 03/23 at 23:30 MURTAZA REYES Mar 25, 2017 16:07
== END 2017-03-25 18:10 | disposition home or self-care (01) | DRG 777 ==
LOC: FTE 08:11 → SDS 16:34 → MS2 16:34 → MS1 16:35 → SDS 16:35 → UNDOADMIN 03-24 00:05 → MS2 03-24 00:05 → UNDODISIN 03-25 18:10
PROVIDERS: ADMIT Obstetrics & Gynecology Obstetrics; ATTEND Obstetrics & Gynecology Obstetrics
PROC: 10D28ZZ Extraction of Products of Conception, Ectopic, Via Natural or Artificial Opening Endoscopic (ICD-10-PCS; principal; 2017-03-23 16:15)
DX: O00.10 Tubal pregnancy without intrauterine pregnancy (principal); J98.11 Atelectasis; D72.829 Elevated white blood cell count, unspecified
CPT/HCPCS: 36415; 71010; 76801; 76817; 80053; 81001; 84702; 84703; 85025; 85610; 85730; 86850; 86900; 86901; 87086; 88305; 88331; 93005; 96360; J0690; J1100; J1170; J2250; J2370; J2405; J2710; J3010; J7030; J7120; J7999

== ENCOUNTER 2017-04-18 12:22 | Emergency (ER) | payer OTHER ==
[~2017-04-18] VITALS: Ht 157.5 cm; Wt 89.0 kg
[2017-04-18 12:35] VITALS: Ht 157.5 cm; Wt 89.0 kg
[2017-04-18] MEDS ORDERED: HYDROmorphONE 1 MG/ML SYG IV STA (13:54)
[2017-04-18] MEDS ORDERED: morphine 4 MG/ML VIAL IV STA (13:54)
[2017-04-18] MEDS ORDERED: ONDANSETRON 4 MG INJ IV STA (13:54)
[2017-04-18] MEDS ORDERED: SOD CHLORIDE 0.9% 1,000 ML IV STA (13:54)
[2017-04-18 14:22] LABS: ADD SCAN DIFF NO
[2017-04-18 14:24] LABS: BASOPHILS % 0.2 % (0.0-2.0); EOSINOPHILS # 0.1 10^3/ul (0.0-0.5); EOSINOPHILS % 0.6 % (0.0-7.0); HEMATOCRIT 38.7 % (37.0-47.0); HEMOGLOBIN 13.2 g/dl (12.0-16.0); LYMPHOCYTES # 2.1 10^3/ul (0.8-2.9); LYMPHOCYTES % 15.7 % (15.0-51.0); MEAN CORPUSCULAR HEMOGLOBIN 29.7 pg (29.0-33.0); MEAN CORPUSCULAR HGB CONC 34.1 g/dl (32.0-37.0); MEAN PLATELET VOLUME 11.2 fl (7.4-10.4); MONOCYTES % 7.3 % (0.0-11.0); NEUTROPHIL # 10.4 10^3/ul (1.6-7.5); PLATELET COUNT 338 10^3/UL (140-415); RED BLOOD COUNT 4.45 10^6/ul (4.20-5.40); RED CELL DISTRIBUTION WIDTH 12.7 % (11.5-14.5); WHITE BLOOD COUNT 13.6 10^3/ul (4.8-10.8)
[2017-04-18 14:44] LABS: ALBUMIN 5.2 g/dl (3.3-4.9); ALBUMIN/GLOBULIN RATIO 1.44; BILIRUBIN,INDIRECT 0.1 mg/dl (0-1.1); BILIRUBIN,TOTAL 0.1 mg/dl (0.2-1.3); CALCIUM 10.3 mg/dl (8.4-10.2); CREATININE 0.55 mg/dl (0.44-1.00); POTASSIUM 4.1 mmol/L (3.5-5.1); TOTAL PROTEIN 8.8 g/dl (6.1-8.1)
[2017-04-18 15:03] LABS: ADD UMIC YES; UR ASCORBIC ACID 40 mg/dL (NEGATIVE); UR BILIRUBIN (Dip) NEGATIVE (NEGATIVE); UR BLOOD (Dip) NEGATIVE (NEGATIVE); UR CLARITY SLIGHTLY CLOUDY (CLEAR); UR COLOR YELLOW (YELLOW); UR GLUCOSE (Dip) 1+ mg/dL (NEGATIVE); UR KETONES (Dip) TRACE mg/dL (NEGATIVE); UR LEUKOCYTE ESTERASE (Dip) NEGATIVE Leu/ul (NEGATIVE); UR MUCUS MODERATE /HPF (NONE SEEN); UR NITRITE (Dip) NEGATIVE (NEGATIVE); UR RBC 12 /HPF (0-5); UR SPECIFIC GRAVITY (Dip) 1.034 (1.003-1.030); UR SQUAMOUS EPITHELIAL CELL FEW /HPF (FEW); UR TOTAL PROTEIN (Dip) 1+ mg/dl (NEGATIVE); UR UROBILINOGEN (Dip) NEGATIVE (NEGATIVE)
[2017-04-18] MEDS ORDERED: IOHEXOL 300MG/ML 150 ML BTL ONE (15:18)
[2017-04-18] MEDS ORDERED: SOD CHLORIDE 0.9% 100 ML ONE (15:18)
--- NOTE | 2017-04-18 15:42 | RADRPT ---
PROCEDURE: Right upper quadrant abdominal ultrasound. CLINICAL INDICATION: Elevated LFTs. TECHNIQUE: Multiple real-time longitudinal and transverse images of the right upper quadrant of th e abdomen were acquired utilizing a curved array transducer. Images were reviewed on a high-resoluti on PACS workstation. COMPARISON: Exam dated 06/12/2015. FINDINGS: There is diffuse increased echogenicity of the liver, which is enlarged measuring 19.3 cm in length. No focal hepatic lesion is identified. There is hepatopedal flow within the main portal vein. Ther e is no gallbladder wall thickening, cholelithiasis, or pericholecystic fluid. There was a negative sonographic Wilkerson's sign. There is no intra or extrahepatic biliary ductal dilatation. The common b ile duct measures 3.2 mm in maximal dimension. The visualized portions of the pancreas are unremarka ble. No free fluid is identified. The right kidney measures 11.6 cm in length and demonstrates normal echogenicity. There is no hydron ephrosis, nephrolithiasis, or renal mass. IMPRESSION: 1. Hepatomegaly and hepatic steatosis. RPTAT: GG .Rodger Wright MD, MD Date Time Electronically viewed and signed by .Rodger Wright MD, MD on 04/18/2017 15:42 .P/
--- NOTE | 2017-04-18 15:56 | RADRPT ---
PROCEDURE: CT abdomen and pelvis with contrast. CLINICAL INDICATION: Right upper quadrant abdominal pain. TECHNIQUE: CT scan of the abdomen and pelvis with contrast was performed after the uneventful intravenous admin istration of 90 cc of Omnipaque-300. Coronal and sagittal reformatted images were obtained from the axial source images. The total exam CTDI equals 19.96 mGy and the total exam DLP equals 1014.21 mGy- cm. One or more of the following dose reduction techniques were used: - Automated exposure control. - Adjustment of the mA and/or kV according to patient size. - Use of iterative reconstruction technique. COMPARISON: None available. FINDINGS: Visualized lower thorax: The visualized lung bases are clear. The visualized heart is unremarkable. Hepatobiliary system and spleen: There is diffuse fatty infiltration of the liver, which is enlarged measuring 19.7 cm in length. No focal hepatic lesion is identified. There is no intra or extrahepatic biliary ductal dilatation. Th e gallbladder is unremarkable. The spleen is unremarkable. The pancreas is unremarkable. Adrenal glands and genitourinary system: The adrenal glands are unremarkable. There are no renal masses or hydronephrosis. The urinary bladde r is unremarkable. The uterus and adnexa are unremarkable. Gastrointestinal system: The stomach and small bowel are unremarkable. There is no bowel wall thickening or evidence of obstr uction. The appendix is in the right lower quadrant and is unremarkable. Peritoneum, vascular system, lymphatics: There is trace free fluid within the pelvis. There is no free intraperitoneal air or focal drainabl e collection within the abdomen or pelvis. There is no mesenteric or retroperitoneal adenopathy. The aorta is nonaneurysmal. Musculoskeletal system: There are no concerning osseous lesions. IMPRESSION: 1. Hepatomegaly and hepatic steatosis. 2. Trace free fluid within the pelvis, likely physiologic. RPTAT: GG .Rodger Wright MD, MD Date Time Electronically viewed and signed by .Rodger Wright MD, MD on 04/18/2017 15:56 .P/
[2017-04-18] MEDS ORDERED: HYDR-906 PO (16:00)
--- NOTE | 2017-04-18 16:03 | ERD ---
ER Documentation Chief Complaint Date/Time DATE: 04/18/17 TIME: 16:02 Chief Complaint joint pain x 3 weeks h/o lupus HPI This is a 31-year-old female presents to the ER with joint pain over the last 3 weeks. Patient states that she usually takes tramadol for her pain however has not worked. Patient has a past medical history of lupus. Pain is located all over her body and she states she feels as if her muscles are going to explode. Additionally, about a month ago patient has a surgery for an ectopic . Patient states that 2 days ago she developed abdominal pain and does admit to tactile fevers. She admits to nausea however denies vomiting or diarrhea. Patient denies any abnormal vaginal bleeding. She denies any vaginal discharge. ROS 12 point review of systems was done, all negative except per HPI. Medications Home Meds Active Scripts Hydrocodone/Acetaminophen ([place] 5-325 Tablet) 1 Each Tablet, 1 TAB PO Q6H Y for PAIN, #20 TAB Prov:SHANON BUCHANAN 04/18/17 Allergies Allergies: Coded Allergies: No Known Drug Allergies (Verified Allergy, Mild, 12/17/16) PMhx/Soc History of Surgery: Yes (C=-SECTION X3) Anesthesia Reaction: No Hx Neurological Disorder: No Hx Respiratory Disorders: Yes (ASTHMA) Hx Cardiac Disorders: No Hx Psychiatric Problems: No Hx Miscellaneous Medical Probl: Yes (LUPUS) Hx Substance Use: No Hx Tobacco Use: No Smoking Status: Never smoker Physical Exam Vitals Vital Signs Date Time Temp Pulse Resp B/P Pulse Ox O2 Delivery O2 Flow Rate FiO2 04/18/17 16:39 64 18 137/60 100 04/18/17 12:35 99.1 87 18 131/83 99 Physical Exam GENERAL: The patient is well developed and appropriate for usual state of health , in no apparent distress. HEENT: Atraumatic. CHEST: Clear to auscultation bilaterally. There are no rales, wheezes or rhonchi. HEART: Regular rate and rhythm. No murmurs, clicks, rubs or gallops. ABDOMEN: Soft, nontender and nondistended. Good bowel sounds. No rebound or guarding. No gross peritonitis. No gross organomegaly or masses. No Wilkerson sign or McBurney point tenderness. BACK: No midline or flank tenderness. NEURO: Alert and oriented. SKIN: The skin is warm and dry. Result Diagram: 04/18/17 1413 04/18/17 1413 Results 24 hrs Laboratory Tests Test 04/18/17 14:13 White Blood Count 13.610^3/ul Red Blood Count 4.4510^6/ul Hemoglobin 13.2g/dl Hematocrit 38.7% Mean Corpuscular Volume 87.0fl Mean Corpuscular Hemoglobin 29.7pg Mean Corpuscular Hemoglobin Concent 34.1g/dl Red Cell Distribution Width 12.7% Platelet Count 77742^3/UL Mean Platelet Volume 11.2fl Neutrophils % 76.0% Lymphocytes % 15.7% Monocytes % 7.3% Eosinophils % 0.6% Basophils % 0.2% Nucleated Red Blood Cells % 0.0/100WBC Neutrophils # 10.410^3/ul Lymphocytes # 2.110^3/ul Monocytes # 1.010^3/ul Eosinophils # 0.110^3/ul Basophils # 0.010^3/ul Nucleated Red Blood Cells # 0.010^3/ul Urine Color YELLOW Urine Clarity SLIGHTLY CLOUDY Urine pH 5.0 Urine Specific [place] 1.034 Urine Ketones TRACEmg/dL Urine Nitrite NEGATIVEmg/dL Urine Bilirubin NEGATIVEmg/dL Urine Urobilinogen NEGATIVEmg/dL Urine Leukocyte Esterase NEGATIVELeu/ul Urine Microscopic RBC 12/HPF Urine Microscopic WBC 1/HPF Urine Squamous Epithelial Cells FEW/HPF Urine Mucus MODERATE/HPF Urine Hemoglobin NEGATIVEmg/dL Urine Glucose 1+mg/dL Urine Total Protein 1+mg/dl Sodium Level 143mmol/L Potassium Level 4.1mmol/L Chloride Level 103mmol/L Carbon Dioxide Level 20mmol/L Anion Gap 24 Blood Urea Nitrogen 12mg/dl Creatinine 0.55mg/dl Glucose Level 97mg/dl Calcium Level 10.3mg/dl Total Bilirubin 0.1mg/dl Direct Bilirubin 0.00mg/dl Indirect Bilirubin 0.1mg/dl Aspartate Amino Transf (AST/SGOT) 20IU/L Alanine Aminotransferase (ALT/SGPT) 49IU/L Alkaline Phosphatase 77IU/L Total Protein 8.8g/dl Albumin 5.2g/dl Globulin 3.60g/dl Albumin/Globulin Ratio 1.44 Lipase 60U/L Current Medications Medications (Trade) Dose Ordered Sig/Tony Route PRN Reason Start Time Stop Time Status Last Admin Dose Admin Sodium Chloride (NS) 1,000 ml @ 1,000 mls/hr Q1H STAT IV 04/18/17 13:54 04/18/17 14:53 DC 04/18/17 14:49 Morphine Sulfate (morphine) 4 mg ONCE STAT IV 04/18/17 13:54 04/18/17 13:56 DC 04/18/17 14:50 Hydromorphone HCl (Dilaudid) 6 mg ONCE STAT IV 04/18/17 13:54 04/18/17 14:18 DC Ondansetron HCl (Zofran Inj) 4 mg ONCE STAT IV 04/18/17 13:54 04/18/17 13:56 DC 04/18/17 14:49 IV Flush 10 ml 10 ml STK-MED ONCE .ROUTE 04/18/17 15:18 04/18/17 15:19 DC 04/18/17 15:41 Sodium Chloride (NS) 100 ml @ ud STK-MED ONCE .ROUTE 04/18/17 15:18 04/18/17 15:19 DC 04/18/17 15:41 Iohexol (Omnipaque 300mg/ ml) 150 ml STK-MED ONCE .ROUTE 04/18/17 15:18 04/18/17 15:19 DC 04/18/17 15:41 Procedures/MDM This is a 31-year-old female presents to the ER with a past medical history of lupus complaining of myalgias, this is likely related to her chronic condition. Since patient was complaining of abdominal pain and possible tactile fevers with a history of a recent surgery patient was worked up for possible acute abdomen. Differential Diagnosis: GERD, gastritis, peptic ulcer disease, pancreatitis, cholecystitis, choledocholithiasis, biliary colic, cholangitis, Hhcf-Njaz-Axrlqs, ACS/AZ, Pnuemonia, appendicitis, hernia, UTI, constipation, ectopic , ovarian torsion, PID, Mittelschmerz, fibroid. Patient's imaging was however normal. Labs are reviewed and there is a slight elevation in white blood cells which may be a stress reaction. There is no significant changes in patient's metabolic panel, and no evidence of urinary tract infection. Patient's test was negative. Patient's pain was controlled in the ER, she will be sent home with [place]. Patient needs to follow -up with her primary care doctor within 1-2 days return to the ER sooner if symptoms worsen. My medical decision making shared with the patient she understands and agrees with plan. Departure Diagnosis: Primary Impression: Joint pain Condition: Stable Patient Instructions: Lupus Referrals: HUSSEIN KNOTT (PCP) Additional Instructions: Call your primary care doctor TOMORROW for an appointment during the next 1-2 days.See the doctor sooner or return here if your condition worsens before your appointment time. SHANON BUCHANAN Apr 18, 2017 16:03
[2017-04-18 16:39] VITALS: BP 137/60; PULSE 64; RESP 18
== END 2017-04-18 16:44 | disposition home or self-care (01) ==
LOC: FTE 12:22
DX: M25.50 Pain in unspecified joint (principal); J45.909 Unspecified asthma, uncomplicated
CPT/HCPCS: 74177; 76705; 80053; 81001; 83690; 85025; J2270; J2405; J7030; Q9967; Z7610; 36415; 96361; 96374; 96375

== ENCOUNTER 2017-08-18 23:01 | Emergency (ER) | payer OTHER ==
[~2017-08-18] VITALS: Ht 160 cm; Wt 85.0 kg
[~2017-08-18 23:01] MED LIST changes: -BACTDS PO; -CALC1TAB79 PO; -CEPH-443 PO; -HYDR-3498 PO; -HYDR200T5 PO; -IBUP-1542 PO; -ONDA4TAB11 PO; -TRAM50TA2 PO
[2017-08-18 23:03] VITALS: Ht 160 cm; Wt 85.0 kg
[2017-08-19 00:18] LABS: ADD UMIC YES; UR ASCORBIC ACID NEGATIVE (NEGATIVE); UR BACTERIA MODERATE /HPF (NONE SEEN); UR BILIRUBIN (Dip) NEGATIVE (NEGATIVE); UR BLOOD (Dip) NEGATIVE (NEGATIVE); UR CLARITY SLIGHTLY CLOUDY (CLEAR); UR COLOR YELLOW (YELLOW); UR GLUCOSE (Dip) NEGATIVE (NEGATIVE); UR KETONES (Dip) NEGATIVE (NEGATIVE); UR LEUKOCYTE ESTERASE (Dip) TRACE Leu/ul (NEGATIVE); UR MUCUS FEW /HPF (NONE SEEN); UR NITRITE (Dip) POSITIVE (NEGATIVE); UR RBC 1 /HPF (0-5); UR SPECIFIC GRAVITY (Dip) 1.021 (1.003-1.030); UR SQUAMOUS EPITHELIAL CELL FEW /HPF (FEW); UR TOTAL PROTEIN (Dip) NEGATIVE (NEGATIVE); UR UROBILINOGEN (Dip) NEGATIVE (NEGATIVE)
[2017-08-19 00:50] LABS: BASOPHIL # 0.1 10^3/ul (0.0-0.1); BASOPHILS % 0.4 % (0.0-2.0); EOSINOPHILS # 0.5 10^3/ul (0.0-0.5); EOSINOPHILS % 3.5 % (0.0-7.0); HEMATOCRIT 37.3 % (37.0-47.0); HEMOGLOBIN 12.6 g/dl (12.0-16.0); LYMPHOCYTES # 3.6 10^3/ul (0.8-2.9); LYMPHOCYTES % 26.1 % (15.0-51.0); MEAN CORPUSCULAR HEMOGLOBIN 29.9 pg (29.0-33.0); MEAN CORPUSCULAR HGB CONC 33.8 g/dl (32.0-37.0); MEAN CORPUSCULAR VOLUME 88.4 fl (82.0-101.0); MEAN PLATELET VOLUME 11.5 fl (7.4-10.4); MONOCYTES % 7.2 % (0.0-11.0); NEUTROPHIL # 8.6 10^3/ul (1.6-7.5); NEUTROPHILS % 62.4 % (39.0-77.0); PLATELET COUNT 276 10^3/UL (140-415); RED BLOOD COUNT 4.22 10^6/ul (4.20-5.40); RED CELL DISTRIBUTION WIDTH 13.1 % (11.5-14.5); WHITE BLOOD COUNT 13.8 10^3/ul (4.8-10.8)
--- NOTE | 2017-08-19 01:10 | RADRPT ---
PROCEDURE: Pelvic ultrasound. CLINICAL INDICATION: Pelvic pain. TECHNIQUE: Multiple sonographic images of the pelvis were obtained utilizing a transabdominal and endovaginal technique. The images were reviewed on a PACS workstation. COMPARISON: None. FINDINGS: The uterus is visualized and measures 8.1 x 5.0 x 5.7 cm. No abnormal uterine mass is identified. T he endometrial echo complex is homogeneous and measures 7.9 mm. There is trace free fluid within the cul-de-sac. The right ovary has a normal echotexture and measu res 5.1 x 4.0 x 5.4 cm. The left ovary has a normal echotexture and measures 2.9 x 1.6 x 1.8 cm. T here is normal flow to both ovaries. There is an anechoic cyst within the right ovary measuring 5.1 x 3.5 x 3.7 cm. No adnexal masses are identified. IMPRESSION: Right ovarian 5.1 cm cyst. Trace pelvic free fluid. .Jose Edmond MD, Date Time Electronically viewed and signed by .Jose Edmnod MD, MD on 08/19/2017 01:10 .T/
[2017-08-19 01:12] LABS: ALBUMIN 4.4 g/dl (3.3-4.9); ALBUMIN/GLOBULIN RATIO 1.33; BILIRUBIN,INDIRECT 0.1 mg/dl (0-1.1); BILIRUBIN,TOTAL 0.1 mg/dl (0.2-1.3); CALCIUM 9.5 mg/dl (8.4-10.2); CREATININE 0.72 mg/dl (0.44-1.00); POTASSIUM 3.7 mmol/L (3.5-5.1); TOTAL PROTEIN 7.7 g/dl (6.1-8.1)
[2017-08-19] MEDS ORDERED: IBUP-1542 PO (01:46)
[2017-08-19] MEDS ORDERED: CEPH-443 PO (01:46)
[2017-08-19] MEDS ORDERED: CEFTRIAXONE 1 GM INJ IM ONE (02:00)
--- NOTE | 2017-08-19 02:30 | ERD ---
ER Documentation Chief Complaint Chief Complaint pelvic pain x 3 days HPI 32-year-old female patient with a past medical history of lupus and previous ectopic presents to the ED complaining of pelvic cramping that started 3 days ago. Reports that it is in her suprapubic area and radiates to her back. States that she is a A1. States that her last menstruation was on July 06, 2017. States that she is currently taking prednisone, Celexa, calcium, tramadol. Denies any vaginal bleeding, vaginal discharge, dysuria, urgency, frequency, hematuria. Denies any chest pain, shortness of breath, fever, chills, nausea, vomiting, diarrhea. ROS All systems reviewed and are negative except as per history of present illness. Medications Home Meds Active Scripts Cephalexin* (Keflex*) 500 Mg Capsule, 500 MG PO QID for 7 Days, CAP Prov:GAVIN LOJA PA-C 08/19/17 Ibuprofen* (Motrin*) 600 Mg Tab, 600 MG PO Q6, #30 TAB take with food Prov:GAVIN LOJA PA-C 08/19/17 Hydrocodone/Acetaminophen ([place] 5-325 Tablet) 1 Each Tablet, 1 TAB PO Q6H Y for PAIN, #20 TAB Prov:SHANON BUCHANAN 04/18/17 Allergies Allergies: Coded Allergies: No Known Drug Allergies (Verified Allergy, Mild, 12/17/16) PMhx/Soc History of Surgery: Yes (C=-SECTION X3) Anesthesia Reaction: No Hx Neurological Disorder: No Hx Respiratory Disorders: Yes (ASTHMA) Hx Cardiac Disorders: No Hx Psychiatric Problems: No Hx Miscellaneous Medical Probl: Yes (LUPUS) Hx Alcohol Use: Yes (OCCASIONALLY) Hx Substance Use: No Hx Tobacco Use: No Smoking Status: Never smoker Physical Exam Vitals Vital Signs Date Time Temp Pulse Resp B/P Pulse Ox O2 Delivery O2 Flow Rate FiO2 08/18/17 23:03 98.4 85 20 132/61 99 Physical Exam Const: Oab-acq-xjbtduknc, well-nourished. In no acute distress. Head: Atraumatic, normocephalic Eyes: Normal Conjunctiva without injection. No purulent discharge. ENT: Normal external ear, nose. Moist oropharynx without tonsillar exudates. Non -erythematous pharynx. Uvula midline. No drooling. No trismus. Neck: No cervical midline tenderness. Full range of motion. No meningismus. No cervical lymphadenopathy. No JVD. Resp: Clear to auscultation bilaterally. No wheezing, rhonchi, rales, or crackles. No accessory muscle use. No retractions. Cardio: Regular rate and rhythm. No murmurs, rubs or gallops. Abd: Soft, suprapubic tenderness, non distended. Normal bowel sounds. No palpable masses. No rebound tenderness. No guarding. Negative McBurney's point. Negative psoas sign. Negative obturator sign. Skin: No petechiae or rashes Back: No midline tenderness. No CVA tenderness. Ext: No cyanosis, or edema. Neur: Awake and alert. Normal gait. Normal coordination. Psych: Normal Mood and Affect Result Diagram: 08/19/172908/19/170 Results 24 hrs Laboratory Tests Test 08/18/17 23:55 08/19/17 00:30 Urine Color YELLOW Urine Clarity SLIGHTLY CLOUDY Urine pH 5.0 Urine Specific [place] 1.021 Urine Ketones NEGATIVEmg/dL Urine Nitrite POSITIVEmg/dL Urine Bilirubin NEGATIVEmg/dL Urine Urobilinogen NEGATIVEmg/dL Urine Leukocyte Esterase TRACELeu/ul Urine Microscopic RBC 1/HPF Urine Microscopic WBC 9/HPF Urine Squamous Epithelial Cells FEW/HPF Urine Bacteria MODERATE/HPF Urine Mucus FEW/HPF Urine Hemoglobin NEGATIVEmg/dL Urine Glucose NEGATIVEmg/dL Urine Total Protein NEGATIVEmg/dl White Blood Count 13.810^3/ul Red Blood Count 4.2210^6/ul Hemoglobin 12.6g/dl Hematocrit 37.3% Mean Corpuscular Volume 88.4fl Mean Corpuscular Hemoglobin 29.9pg Mean Corpuscular Hemoglobin Concent 33.8g/dl Red Cell Distribution Width 13.1% Platelet Count 80618^3/UL Mean Platelet Volume 11.5fl Neutrophils % 62.4% Lymphocytes % 26.1% Monocytes % 7.2% Eosinophils % 3.5% Basophils % 0.4% Nucleated Red Blood Cells % 0.0/100WBC Neutrophils # 8.610^3/ul Lymphocytes # 3.610^3/ul Monocytes # 1.010^3/ul Eosinophils # 0.510^3/ul Basophils # 0.110^3/ul Nucleated Red Blood Cells # 0.010^3/ul Sodium Level 142mmol/L Potassium Level 3.7mmol/L Chloride Level 105mmol/L Carbon Dioxide Level 28mmol/L Anion Gap 13 Blood Urea Nitrogen 11mg/dl Creatinine 0.72mg/dl Glucose Level 96mg/dl Calcium Level 9.5mg/dl Total Bilirubin 0.1mg/dl Direct Bilirubin 0.00mg/dl Indirect Bilirubin 0.1mg/dl Aspartate Amino Transf (AST/SGOT) 18IU/L Alanine Aminotransferase (ALT/SGPT) 35IU/L Alkaline Phosphatase 67IU/L Total Protein 7.7g/dl Albumin 4.4g/dl Globulin 3.30g/dl Albumin/Globulin Ratio 1.33 Lipase 109U/L Serum HCG, Qualitative NEGATIVE Current Medications Medications (Trade) Dose Ordered Sig/Tony Route PRN Reason Start Time Stop Time Status Last Admin Dose Admin Ceftriaxone Sodium (Rocephin) 1 gm ONCE ONCE IM 08/19/17 02:00 08/19/17 02:01 DC 08/19/17 01:47 Procedures/MDM 32-year-old female patient with a past medical history of lupus and previous ectopic presents to the ED complaining of pelvic cramping that started 3 days ago. Patient is afebrile and nontoxic-appearing. Patient has normal vital signs. Patient was further worked up with CBC, CMP, lipase, UA, urine , serum Hcg and pelvic ultrasound. Patient's pain and symptoms have improved after treatment with Toradol here in the ED. CBC: No leukocytosis. No e/o of systemic infection. No e/o anemia. CMP: No e/o severe acidosis, alkalosis, renal failure, diabetic ketoacidosis, liver disease Lipase within normal limits. Urine: Trace leukocyte esterase, positive nitrite, no hematuria. Urine : Negative Serum Hcg: Negative PROCEDURE: Pelvic ultrasound. CLINICAL INDICATION: Pelvic pain. TECHNIQUE: Multiple sonographic images of the pelvis were obtained utilizing a transabdominal and endovaginal technique. The images were reviewed on a PACS workstation. COMPARISON: None. FINDINGS: The uterus is visualized and measures 8.1 x 5.0 x 5.7 cm. No abnormal uterine mass is identified. The endometrial echo complex is homogeneous and measures 7.9 mm. There is trace free fluid within the cul-de-sac. The right ovary has a normal echotexture and measures 5.1 x 4.0 x 5.4 cm. The left ovary has a normal echotexture and measures 2.9 x 1.6 x 1.8 cm. There is normal flow to both ovaries. There is an anechoic cyst within the right ovary measuring 5.1 x 3.5 x 3.7 cm. No adnexal masses are identified. IMPRESSION: Right ovarian 5.1 cm cyst. Trace pelvic free fluid. Patient has a urinary tract infection based on her positive nitrite, trace leukocyte esterase and an ovarian cyst. Low suspicion for ectopic , ovarian torsion, gastritis, GERD, peptic ulcer disease, cholecystitis, choledocholithiasis, cholangitis, pancreatitis, appendicitis, bowel obstruction , ileus, volvulus, nephrolithiasis, pyelonephritis, hepatitis, perforated viscus , diverticulitis, strangulated/incarcerated hernia, DKA, acute abdomen, mesenteric ischemia or other emergent conditions. Discharge medications: Ibuprofen, Keflex Follow up with primary care physician in 1-2 days for referral to [facility]. Instructed patient to return to the ED sooner for any worsening symptoms. Patient's questions were answered. Patient understood and agreed with discharge plan. Patient discharged stable. Departure Diagnosis: Primary Impression: Suprapubic pain Additional Impressions: Back pain Back pain location: back pain in unspecified location Chronicity: unspecified Back pain laterality: unspecified Qualified Code: M54.9 - Back pain, unspecified back location, unspecified back pain laterality, unspecified chronicity Pelvic pain Condition: Stable Patient Instructions: Ovarian Cyst, Pyelonephritis, Female (Adult) Referrals: [facility] YOU HAVE RECEIVED A MEDICAL SCREENING EXAM AND THE RESULTS INDICATE THAT YOU DO NOT HAVE A CONDITION THAT REQUIRES URGENT TREATMENT IN THE EMERGENCY DEPARTMENT. FURTHER EVALUATION AND TREATMENT OF YOUR CONDITION CAN WAIT UNTIL YOU ARE SEEN IN YOUR DOCTORS OFFICE WITHIN THE NEXT 1-2 DAYS. IT IS YOUR RESPONSIBILITY TO MAKE AN APPOINTMENT FOR FOLOW-UP CARE. IF YOU HAVE A PRIMARY DOCTOR --you should call your primary doctor and schedule an appointment IF YOU DO NOT HAVE A PRIMARY DOCTOR YOU CAN CALL OUR PHYSICIAN REFERRAL HOTLINE AT IF YOU CAN NOT AFFORD TO SEE A PHYSICIAN YOU CAN CHOSE FROM THE FOLLOWING [facility] [address] [facility]. [facility] [address] [facility]. [facility] [address] [facility] [address] [facility]. [facility] [address] [facility]. [facility] [address] [facility]. [facility] YOU HAVE RECEIVED A MEDICAL SCREENING EXAM AND THE RESULTS INDICATE THAT YOU DO NOT HAVE A CONDITION THAT REQUIRES URGENT TREATMENT IN THE EMERGENCY DEPARTMENT. FURTHER EVALUATION AND TREATMENT OF YOUR CONDITION CAN WAIT UNTIL YOU ARE SEEN IN YOUR DOCTORS OFFICE WITHIN THE NEXT 1-2 DAYS. IT IS YOUR RESPONSIBILITY TO MAKE AN APPOINTMENT FOR FOLOW-UP CARE. IF YOU HAVE A PRIMARY DOCTOR --you should call your primary doctor and schedule and appointment IF YOU DO NOT HAVE A PRIMARY DOCTOR YOU CAN CALL OUR PHYSICIAN REFERRAL HOTLINE AT . IF YOU CAN NOT AFFORD TO SEE A PHYSICIAN YOU CAN CHOSE FROM THE FOLLOWING [facility] INSTITUTIONS: [facility] [address] [place] [address] [facility] [address] [place] [address] [facility] [address] [place] [address] [facility] URGENT CARE/SPECIALTIES TECHNICAL SPECIALIST CYTOLOGY [place] [address] [facility] [address] [place], [place] [phone] OFFICE FAX TARUN RODRIGUEZ [address] [place] [place] [phone]ASS[address] [address] [place], [place] [phone] JAMES ODOM [address] [facility], [address] [address] [address] [address] [place], [place] [id number] [facility] [address] [place] [address] [address] [facility] [id number] HUGHES, ANTONIO [address], [facility] [address] [place] [address] [facility]. [address], [facility] [address] [address] ROSARIO, [facility] [address] [place], [place] [phone] Additional Instructions: Call your primary care doctor TOMORROW for an appointment during the next 2-3 days.See the doctor sooner or return here if your condition worsens before your appointment time. GAVIN LOJA PA-C Aug 19, 2017 02:30 GAVIN LOJA PA-C Aug 19, 2017 02:30
== END 2017-08-19 02:13 | disposition home or self-care (01) ==
LOC: FTE 23:01
DX: R10.2 Pelvic and perineal pain (principal); M54.9 Dorsalgia, unspecified
CPT/HCPCS: 76830; 76856; 80053; 81001; 83690; 84703; 85025; 96372; J0696; Z7502

== ENCOUNTER 2017-09-16 11:03 | Emergency (ER) | payer OTHER ==
[~2017-09-16] VITALS: Ht 157.5 cm; Wt 84.0 kg
[~2017-09-16 11:03] MED LIST changes: +CEPH-443 PO; +IBUP-1542 PO
[2017-09-16 11:08] VITALS: Ht 157.5 cm; Wt 84.0 kg
[2017-09-16] MEDS ORDERED: HYDROCODONE/APAP (5/325) TAB PO ONE (13:00)
--- NOTE | 2017-09-16 13:25 | ERD ---
ER Documentation Chief Complaint Chief Complaint Pt presents joint pain and infalmmatioj x 2 day, dx lupus. HPI 32-year-old female, with history of lupus, presents to the emergency department complaining of 2 days with worsening of joint pain, associated with mild runny nose and sore throat. The patient believes that the symptoms are probably related to a cold. Denies fevers, chills, no rashes, no shortness of breath. The patient has been taking tramadol with mild improvement of the symptoms. ROS SYSTEMIC symptoms: no fever, chills, no night sweats, no weight loss EYE symptoms: No blurred vision, no eye discharge OTOLARYNGEAL symptoms: No hearing loss. No ear pain, no sore throat CARDIOVASCULAR symptoms: No chest pain or discomfort, no palpitations. PULMONARY symptoms: No dyspnea, no cough, no wheezing. GASTROINTESTINAL symptoms: No abdominal pain, no nausea, no vomiting, no diarrhea MUSCULOSKELETAL symptoms: + arthralgias, no muscle aches. NEUROLOGY symptoms: No confusion, no syncope, no numbness or tingling. SKIN: No rashes Medications Home Meds Active Scripts Hydrocodone/Acetaminophen (Horton 5-325 Tablet) 1 Each Tablet, 1 TAB PO Q6H Y for PAIN, #20 TAB Prov:REBECCA RAMAN MD 09/16/17 Cephalexin* (Keflex*) 500 Mg Capsule, 500 MG PO QID for 7 Days, CAP Prov:GAVIN LOJA PA-C 08/19/17 Ibuprofen* (Motrin*) 600 Mg Tab, 600 MG PO Q6, #30 TAB take with food Prov:GAVIN LOJA PA-C 08/19/17 Hydrocodone/Acetaminophen (Horton 5-325 Tablet) 1 Each Tablet, 1 TAB PO Q6H Y for PAIN, #20 TAB Prov:SHANON BUCHANAN 04/18/17 Allergies Allergies: Coded Allergies: No Known Drug Allergies (Verified Allergy, Mild, 12/17/16) PMhx/Soc History of Surgery: Yes (C=-SECTION X3) Anesthesia Reaction: No Hx Neurological Disorder: No Hx Respiratory Disorders: Yes (ASTHMA) Hx Cardiac Disorders: No Hx Psychiatric Problems: No Hx Miscellaneous Medical Probl: Yes (LUPUS) Hx Alcohol Use: No Hx Substance Use: No Hx Tobacco Use: No Physical Exam Vitals Vital Signs Date Time Temp Pulse Resp B/P Pulse Ox O2 Delivery O2 Flow Rate FiO2 09/16/17 11:08 99.1 88 18 137/84 100 Physical Exam Patient is in no focal joint erythema, mild distress due to pain, vital signs stable. Alert and fully oriented. EYES: PERRLA, EOMI, Sclera and conjunctiva appear normal. EARS: Canals clear, tympanic membranes WNL THROAT: Normal oropharynx. NECK: Supple, No lymphadenopathy. Full ROM without pain or tenderness. HEART: RRR, no rubs, murmurs, clicks or gallops. LUNGS: Clear to auscultation. ABDOMEN: Soft, non-tender without masses or hepatosplenomegaly. EXTREMITIES: No edema bilaterally, no focal joint erythema, warmth, effusion. BACK: Full ROM, no deformity, normal back exam NEURO: Cranial nerves grossly intact, no motor or sensory deficit Results 24 hrs Current Medications Medications (Trade) Dose Ordered Sig/Tony Route PRN Reason Start Time Stop Time Status Last Admin Dose Admin Acetaminophen/ Hydrocodone Bitart (Horton (5/325)) 2 tab ONCE ONCE PO 09/16/17 13:00 09/16/17 13:01 DC 09/16/17 12:40 Procedures/MDM 32-year-old patient with history of lupus, presents to the ED c/o worsening of arthralgia for 3 days. Vital signs stable, Physical exam unremarkable, no signs of focal acute arthritis. Differential diagnosis include but not limited to: Viral infection, lupus flareup, reactive arthritis. Low suspicion for septic arthritis or systemic infection.. Physical examination and clinical presentation consistent most likely with mild reactive arthritis most likely secondary to upper respiratory infection. During the ED course the patient remained stable, no new complaints. The patient received Horton in the ER presenting overall improvement of the symptoms. Results and clinical impression discussed with patient who agrees with management. The patient is stable to be treated outpatient and will be discharged home with a Rx for Horton. Side effects of prescribed opiates (drowsiness, habituation) were reviewed. The patient was instructed to follow up with the primary care provider in the next 48h. If symptoms persist, worsen or new symptoms develop, then patient should return to the ED immediately. Instructions explained and given to patient in Indonesian with acknowledgment and demonstrated understanding. Disclaimer: Inadvertent spelling and grammatical errors are likely due to EHR/ dictation software use and do not reflect on the overall quality of patient care. Also, please note that the electronic time recorded on this note does not necessarily reflect the actual time of the patient encounter. Departure Diagnosis: Primary Impression: Arthralgia of multiple joints Additional Impression: Lupus Condition: Stable Additional Instructions: Call your primary care doctor TOMORROW for an appointment during the next 1-2 days. See the doctor sooner or return here if your condition worsens before your appointment time. Thank you very much for allowing us to participate in your care. Your health and safety is our top priority at [facility]. Have prescriptions filled and follow precisely the directions on the label. Follow-up with primary care provider during the next 4 days and bring all the information and medications prescribed. If illness has not improved in 2 days, then make an appointment with primary care provider. If the provider is unavailable, return to the Emergency Department immediately. REBECCA RAMAN MD Sep 16, 2017 13:25
[2017-09-16] MEDS ORDERED: HYDR-906 PO (13:27)
== END 2017-09-16 13:40 | disposition home or self-care (01) ==
LOC: FTE 11:03
DX: M25.50 Pain in unspecified joint (principal); J45.909 Unspecified asthma, uncomplicated; M32.9 Systemic lupus erythematosus, unspecified
CPT/HCPCS: Z7502; Z7610; 99283

== ENCOUNTER 2017-11-03 10:40 | Emergency (ER) | END 2017-11-03 16:49 | disposition home or self-care (01) ==

== ENCOUNTER 2017-11-15 12:06 | Emergency (ER) | END 2017-11-15 15:08 | disposition home or self-care (01) ==

== ENCOUNTER → 2017-11-24 | Emergency (ER) | END | disposition left against medical advice (07) ==

== ENCOUNTER 2017-12-15 00:20 | Emergency (ER) | END 2017-12-15 04:21 | disposition home or self-care (01) ==

== ENCOUNTER 2018-01-30 09:24 | Emergency (ER) | END 2018-01-30 14:05 | disposition home or self-care (01) ==

== ENCOUNTER 2018-04-26 19:09 | Outpatient (CLI) | END 2018-04-26 21:20 | disposition home or self-care (01) ==

== ENCOUNTER 2018-05-22 18:00 | Inpatient (IN) | END 2018-05-24 15:53 | disposition home or self-care (01) | DRG 781 ==

== ENCOUNTER 2018-09-12 09:17 | Emergency (ER) | END 2018-09-12 12:08 | disposition home or self-care (01) ==

== ENCOUNTER 2018-10-07 00:11 | Emergency (ER) | payer OTHER ==
[~2018-10-07] VITALS: Ht 157.5 cm; Wt 82.2 kg
[~2018-10-07 00:11] MED LIST changes: +ASPI325T30 PO; +CALC600T24 PO; -CEPH-443 PO; -HYDR-906 PO; +HYDR200T5 PO; +MEDR10TA2 PO; +PRED1TAB2 PO; +PREN-19 PO; +TRAM50TA PO
[2018-10-07 00:18] VITALS: Ht 157.5 cm; Wt 82.2 kg
--- NOTE | 2018-10-07 00:52 | ERD ---
ER Documentation Chief Complaint Chief Complaint joint pains all over,hx lupus;Tramadol not helping HPI This is a 33-year-old female who presents emergency department with complaints of generalized pain. Stated that she ran out of tramadol. She also stated that she has a pain specialist that she will see this coming October 27, 2018. Stated that she wants a pain shot. LMP: September 28, 2018. with one ectopic . Denies headache, head injury, loss of consciousness, dizziness, neck pain, neck stiffness, throat pain, difficulty swallowing, difficulty breathing lying flat, shoulder pain, chest pain, back pain, abdominal pain, nausea, vomiting, constipation, diarrhea, urinary symptoms, or possibility being , loss of bowel and bladder control, trauma, injury, falls, difficulty walking due to pain, numbness or tingling sensation, calf pain, recent travel, recent major surgery in the last 3 weeks, calf pain, recent long travel, recent exposure to any illness, recent antibiotic use in the last 3 months, fever, chills, seizures. Past medical history: Lupus. Surgical history: Social: Denies smoking, use of alcoholic beverages, use of illegal drugs. ROS All systems reviewed and are negative except as per history of present illness. Medications Home Meds Active Scripts Tramadol HCl (Tramadol HCl) 50 Mg Tablet, 50 MG PO Q4 PRN for PAIN, #10 TAB Prov:URSULA TRUJILLO 10/07/18 Ibuprofen* (Motrin*) 600 Mg Tab, 600 MG PO Q6H, #30 TAB Prov:SYED VITALE TRANSPLANT NURSE 09/12/18 Medroxyprogesterone Acetate* (Provera*) 10 Mg Tablet, 10 MG PO DAILY, #10 TAB Prov:SYED VITALE NP 09/12/18 Reported Medications Calcium Carbonate* (Calcium Carbonate*) 600 MG Ca Tab, 600 MG PO DAILY, TAB 04/26/18 Vit #76/Iron,Carb/FA (Prenatabs Rx Tablet) 1 Each Tablet, 1 EACH PO DAILY, TAB 04/26/18 Aspirin* (Aspirin*) 325 Mg Tablet, 325 MG PO DAILY, TAB 04/26/18 Prednisone* (Prednisone*) 1 Mg Tablet, 1 MG PO DAILY, TAB 04/26/18 Tramadol Hcl* (Ultram*) 50 Mg Tablet, 100 MG PO QHS PRN for PAIN, TAB 11/03/17 Hydroxychloroquine Sulfate* (Plaquenil*) 200 Mg Tab, 200 MG PO DAILY, TAB 11/03/17 Allergies Allergies: Coded Allergies: No Known Drug Allergies (Verified Allergy, Mild, 10/07/18) PMhx/Soc History of Surgery: Yes (C=-SECTION X3,TUBAL LIGATION) Anesthesia Reaction: No Hx Neurological Disorder: No Hx Respiratory Disorders: Yes (ASTHMA) Hx Cardiac Disorders: No Hx Psychiatric Problems: No Hx Miscellaneous Medical Probl: Yes (LUPUS) Hx Alcohol Use: Yes (OCCASSIONAL) Hx Substance Use: No Hx Tobacco Use: No Physical Exam Vitals Vital Signs Date Temp Pulse Resp B/P (MAP) Pulse Ox O2 O2 Flow FiO2 Time Delivery Rate 10/07/18 98.0 77 16 118/73 98 Room Air 02:26 (88) 10/07/18 97.1 83 18 132/88 97 00:18 (103) Physical Exam Examined with female produce specialist, Alyssa PHILLIPS. Const: No acute distress Head: Atraumatic Eyes: Normal Conjunctiva ENT: Normal External Ears, Nose and Mouth. Neck: Full range of motion. No meningismus. Resp: Clear to auscultation bilaterally Cardio: Regular rate and rhythm, no murmurs Abd: Soft, non tender, non distended. Normal bowel sounds Skin: No petechiae or rashes Back: No midline or flank tenderness. Unremarkable musculoskeletal exam. Ext: No cyanosis, or edema Neur: Awake and alert. No neurological deficits. Psych: Normal Mood and Affect Results 24 hrs Laboratory Tests Test 10/07/18 01:17 POC Beta HCG, Qualitative NEGATIVE Current Medications Medications Dose Sig/Tony Start Time Status Last (Trade) Ordered Route PRN Stop Time Admin Dose Reason Admin Morphine 4 mg ONCE STAT 10/07/18 DC 10/07/18 Sulfate IM 01:31 01:35 (morphine) 10/07/18 01:32 Procedures/MDM Diagnostic tests: POC urine : Negative. Treatment: Morphine IM. Re-evaluation: Denies pain. Final diagnosis: Chronic pain. Prescription: Tramadol. Follow-up with PCP in the next 24-48 hours. Come back here in the emergency department for any new symptoms or any worsening symptoms. All questions and concerns were answered. Patient and family members verbalized understanding and agreed with plan of care. Hemodynamically stable on discharge. Departure Diagnosis: Primary Impression: Pain Additional Impression: Chronic pain Condition: Stable Additional Instructions: Follow-up with PCP in the next 24-48 hours. Come back here in the emergency department for any new symptoms or any worsening symptoms. URSULA TRUJILLO Oct 07, 2018 00:52
[2018-10-07] MEDS ORDERED: morphine 4 MG/ML VIAL IM STA (01:31)
[2018-10-07] MEDS ORDERED: TRAM50TA2 PO (01:34)
[2018-10-07 02:26] VITALS: BP 118/73; PULSE 77; RESP 16
== END 2018-10-07 02:26 | disposition home or self-care (01) ==
LOC: FTE 00:11
DX: M25.50 Pain in unspecified joint (principal); J45.909 Unspecified asthma, uncomplicated; G89.29 Other chronic pain; Z79.82 Long term (current) use of aspirin
CPT/HCPCS: 81025; 96372; J2270; Z7502

== ENCOUNTER 2019-01-11 13:23 | Emergency (ER) | payer OTHER ==
[~2019-01-11] VITALS: Ht 167.6 cm; Wt 86.8 kg
[~2019-01-11 13:23] MED LIST changes: +TRAM50TA2 PO
[2019-01-11 13:30] VITALS: Ht 167.6 cm; Wt 86.8 kg
--- NOTE | 2019-01-11 15:11 | ERD ---
ER Documentation Chief Complaint Chief Complaint Complains of generalized pain Hx of Lupus HPI 33-year-old woman with a history of lupus and chronic pain syndrome presents with pain to the right upper extremity and right shoulder. She has a history of lupus and states she is having a lupus flare. She usually uses tramadol at home for pain and states she has contacted her pain specialist for refill of stronger opioid medications. She denies redness or swelling to the arm, no chest pain or shortness of breath, no cough, no trauma, no headache or blurry vision. Patient denies abdominal pain or dysuria. ROS All systems reviewed and are negative except as per history of present illness. Medications Home Meds Active Scripts Prednisone* (Prednisone*) 20 Mg Tab, 40 MG PO DAILY for 7 Days, TAB Prov:REX ROMANO MD 01/11/19 Oxycodone HCl/Acetaminophen (Percocet 5-325 mg Tablet) 1 Each Tablet, 1 EACH PO TID PRN for PAIN, #9 TAB Prov:REX ROMANO MD 01/11/19 Reported Medications Tramadol Hcl* (Ultram*) 50 Mg Tablet, 50 MG PO Q6H PRN for PAIN, TAB 01/11/19 Hydroxychloroquine Sulfate* (Plaquenil*) 200 Mg Tab, 200 MG PO DAILY, TAB 01/11/19 Discontinued Reported Medications Calcium Carbonate* (Calcium Carbonate*) 600 MG Ca Tab, 600 MG PO DAILY, TAB 04/26/18 Vit #76/Iron,Carb/FA (Prenatabs Rx Tablet) 1 Each Tablet, 1 EACH PO DAILY, TAB 04/26/18 Aspirin* (Aspirin*) 325 Mg Tablet, 325 MG PO DAILY, TAB 04/26/18 Prednisone* (Prednisone*) 1 Mg Tablet, 1 MG PO DAILY, TAB 04/26/18 Tramadol Hcl* (Ultram*) 50 Mg Tablet, 100 MG PO QHS PRN for PAIN, TAB 11/03/17 Hydroxychloroquine Sulfate* (Plaquenil*) 200 Mg Tab, 200 MG PO DAILY, TAB 11/03/17 Discontinued Scripts Tramadol HCl (Tramadol HCl) 50 Mg Tablet, 50 MG PO Q4 PRN for PAIN, #10 TAB Prov:URSULA TRUJILLO 10/07/18 Ibuprofen* (Motrin*) 600 Mg Tab, 600 MG PO Q6H, #30 TAB Prov:SYED VITALEKalani RESIDENTIAL COORDINATOR 09/12/18 Medroxyprogesterone Acetate* (Provera*) 10 Mg Tablet, 10 MG PO DAILY, #10 TAB Prov:SYED VITALE. RESIDENTIAL COORDINATOR 09/12/18 Allergies Allergies: Coded Allergies: No Known Drug Allergies (Verified Allergy, Mild, 01/11/19) PMhx/Soc Chronic pain syndrome, lupus History of Surgery: Yes (C=-SECTION X3,TUBAL LIGATION) Anesthesia Reaction: No Hx Neurological Disorder: No Hx Respiratory Disorders: Yes (ASTHMA) Hx Cardiac Disorders: No Hx Psychiatric Problems: No Hx Miscellaneous Medical Probl: Yes (LUPUS) Hx Alcohol Use: Yes (OCCASSIONAL) Hx Substance Use: No Hx Tobacco Use: No Smoking Status: Never smoker FmHx Family History: No diabetes Physical Exam Vitals Vital Signs Date Temp Pulse Resp B/P (MAP) Pulse Ox O2 O2 Flow FiO2 Time Delivery Rate 01/11/19 97.9 77 20 121/76 97 Room Air 16:50 (91) 01/11/19 97.9 87 20 135/65 100 13:30 (88) Physical Exam GENERAL: Well-developed, well-nourished, well-hydrated, crying, anxious, afebrile CARDIAC: Regular rate and rhythm, no murmurs rubs or gallops LUNGS: Clear bilaterally no wheezing crackles or stridor ABDOMEN: Soft nontender, no guarding, no rigidity, no rebound, no psoas sign no obturator sign. Normoactive bowel sounds SKIN: Warm and dry to touch, no abrasions, contusions, or hematomas, no lacerations, no ecchymosis, no target lesions, and without ulcers EXTREMITIES: No clubbing cyanosis or edema, calves are bilaterally symmetrical, no Homans sign, no popliteal cord sign. Distal pulses equal and bilateral PSYCH: Anxious and crying Results 24 hrs Current Medications Medications Dose Sig/Tony Start Time Status Last (Trade) Ordered Route PRN Stop Time Admin Dose Reason Admin Ketorolac 30 mg ONCE STAT 01/11/19 DC 01/11/19 Tromethamine IM 15:14 15:24 (Toradol) 01/11/19 15:15 Oxycodone/ 1 tab ONCE ONCE 01/11/19 DC 01/11/19 Acetaminophen PO 15:30 15:24 (Percocet 01/11/19 15:31 (/ )) Procedures/MDM I administered Toradol 30 mg IM and Percocet 1 tablet p.o. Patient's pain resolved completely and she fell asleep after analgesics were administered. Her vital signs were normal and she remained comfortable in our ED. She does have follow-up with her pain specialist and I gave her a short prescription for prednisone and opioid analgesics until she sees PMD Differential diagnoses considered, included but not limited to acute coronary syndrome, pulmonary embolism, aortic dissection, abdominal aortic aneurysm, sepsis, stroke, meningitis, encephalitis, pneumonia, appendicitis, cholecystitis, bowel obstruction, pyelonephritis, nephrolithiasis, cystitis, as well as metabolic, hematologic, and electrolyte abnormalities. As well as abscess, cellulitis, fractures, and dislocations. Patient feels much better at this time, and vital signs are normal, symptoms have improved. I did give strict instructions to return to the ED if symptoms continue or worsen, patient will otherwise follow-up with primary care physician. Patient understood instructions and agreed to plan. Disclaimer: Inadvertent spelling and grammatical errors are likely due to EHR/dictation software use and do not reflect on the overall quality of patient care. Also, please note that the electronic time recorded on this note does not necessarily reflect the actual time of the patient encounter. Departure Diagnosis: Primary Impression: Pain of right arm Additional Impression: Lupus Condition: Good REX ROMANO MD Jan 11, 2019 15:11
[2019-01-11] MEDS ORDERED: KETOROLAC 30 MG INJ IM STA (15:14)
[2019-01-11] MEDS ORDERED: OXYCODONE/ACETAMINOPHEN (5/325) TAB PO ONE (15:30)
[2019-01-11] MEDS ORDERED: HYDR200T5 PO (16:13)
[2019-01-11] MEDS ORDERED: TRAM50TA PO (16:14)
[2019-01-11] MEDS ORDERED: PRED20TA PO (16:17)
[2019-01-11] MEDS ORDERED: OXYC-279 PO (16:17)
[2019-01-11 16:50] VITALS: BP 121/76; PULSE 77; RESP 20
== END 2019-01-11 17:00 | disposition home or self-care (01) ==
LOC: E/R 13:23
DX: M25.511 Pain in right shoulder (principal); M32.9 Systemic lupus erythematosus, unspecified; J45.909 Unspecified asthma, uncomplicated
CPT/HCPCS: J1885; Z7610; 96372

== ENCOUNTER 2019-06-17 01:39 | Emergency (ER) | payer OTHER ==
[~2019-06-17] VITALS: Ht 167.6 cm; Wt 86.3 kg
[~2019-06-17 01:39] MED LIST changes: -ASPI325T30 PO; -CALC600T24 PO; -IBUP-1542 PO; +LIDO700A45 TP; -MEDR10TA2 PO; +OXYC-279 PO; -PRED1TAB2 PO; +PRED20TA PO; -PREN-19 PO; -TRAM50TA2 PO
[2019-06-17 01:41] VITALS: Ht 167.6 cm; Wt 86.3 kg
[2019-06-17] MEDS ORDERED: KETOROLAC 30 MG INJ IM ONE (03:09)
[2019-06-17] MEDS ORDERED: OXYCODONE/ACETAMINOPHEN (5/325) TAB PO ONE (03:30)
[2019-06-17 04:51] VITALS: BP 109/79; PULSE 94; RESP 22
== END 2019-06-17 04:56 | disposition home or self-care (01) ==
LOC: E/R 01:39
DX: M79.601 Pain in right arm (principal); J45.909 Unspecified asthma, uncomplicated; R94.02 Abnormal brain scan
CPT/HCPCS: 70450; 81025; 96372; J1885; Z7502; Z7610